=== PATIENT | female | born 1985 | race African-American/Black ===

== ENCOUNTER 2018-03-24 20:34 | Emergency (ER) | payer MEDICAID ==
[2018-03-24 20:50] VITALS: BP 156/111
--- NOTE | 2018-03-24 21:32 | EDM.PDOC ---
ED HPI GENERAL MEDICAL PROBLEM - General Chief Complaint: Abdominal Pain Stated Complaint: TIRED AND STOMACH PAIN Time Seen by Provider: 03/24/18 21:05 Source of Information: Reports: Patient, RN Notes Reviewed History Limitations: Reports: No Limitations - History of Present Illness INITIAL COMMENTS - FREE TEXT/NARRATIVE: The patient states that she has been experiencing upper abdominal pain on and off for the past week, along with oral canker sores, and feeling tired and weak. She describes the abdominal pain as a dull ache. It does not radiate. When it is present, it will be there all day, then resolve for a few hours. She has not found any modifiers. She has associated nausea, and vomited yesterday. No constipation, diarrhea, or bloody bowel movements. No urinary symptoms. No recent fever. The patient states that she has been taking Zofran 4 mg ODT twice a day, which has helped with her nausea, but has not helped with the abdominal pain itself. The patient reports that she had similar abdominal discomfort in June 2017, when she was on Cytoxan for treatment of her SLE. The patient states that she is currently not on any medications for any of her medical conditions. The patient's PCP and Social Service Worker are in [place], [place]. She lives here in [place], but does not have any providers here. Upper Abdomen Pain Score (Numeric/FACES): 7 - Related Data Allergies Allergy/AdvReac Type Severity Reaction Status Date / Time Sulfa (Sulfonamide Allergy Nausea Verified 03/24/18 20:51 Antibiotics) Home Meds: Home Meds . [No Known Home Meds] 01/31/18 [History] Past Medical History Cardiovascular History: Reports: Hypertension (untreated) Psychiatric History: Reports: Anxiety (untreated), Depression (untreated), Emotional Problems (untreated), Mood Swings (untreated) Immunologic History: Reports: SLE (currently untreated) - Past Surgical History HEENT Surgical History: Reports: Oral Surgery (wisdom teeth extraction) Respiratory Surgical History: Reports: Thoracentesis (right) Social & Family History - Tobacco Use Smoking Status *Q: Never Smoker - Caffeine Use Caffeine Use: Reports: None - Alcohol Use Alcohol Use History: No - Recreational Drug Use Recreational Drug Use: No - Living Situation & Occupation Living situation: Reports: Single, Alone 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 ED EXAM, GI/ABD - Physical Exam Exam: See Below Exam Limited By: No Limitations General Appearance: Alert, WD/WN, No Apparent Distress Eyes: Bilateral: Normal Appearance, EOMI Ears: Normal External Exam, Hearing Grossly Normal Nose: Normal Inspection Throat/Mouth: Normal Inspection, Normal Lips, Normal Voice, No Airway Compromise Head: Atraumatic, Normocephalic Neck: Normal Inspection, Full Range of Motion Respiratory/Chest: No Respiratory Distress, Lungs Clear, Normal Breath Sounds, No Accessory Muscle Use Cardiovascular: Normal Peripheral Pulses, Regular Rate, Rhythm, No Gallop, No JVD, No Murmur, No Rub GI/Abdominal Exam: Normal Bowel Sounds, Soft, Non-Tender (including to upper abdomen), No Organomegaly, No Distention, No Abnormal Bruit, No Mass (Female) Exam: Deferred Rectal (Female) Exam: Deferred Back Exam: Normal Inspection, Full Range of Motion. No: CVA Tenderness (L), CVA Tenderness (R) Extremities: Normal Inspection, Normal Range of Motion, No Pedal Edema, Normal Capillary Refill Neurological: Alert, Oriented, Normal Cognition, No Motor/Sensory Deficits Psychiatric: Normal Affect Skin Exam: Warm, Dry, Intact, Normal Color, No Rash Course - Vital Signs Last Recorded V/S: Last Vital Signs Temp 36.7 C 03/24/18 20:48 Pulse 73 03/24/18 20:48 Resp 20 03/24/18 20:48 BP 156/111 H 03/24/18 20:48 Pulse Ox 96 03/24/18 20:48 - Orders/Labs/Meds Labs: Laboratory Tests 03/24/18 03/24/18 Range/Units 21:35 21:35 WBC 3.05 L (3.98-10.04) K/mm3 RBC 4.08 (3.98-5.22) M/mm3 Hgb 12.8 (11.2-15.7) gm/L Hct 38.9 (34.1-44.9) % MCV 95.3 H (79.4-94.8) fl MCH 31.4 (25.6-32.2) pg MCHC 32.9 (32.2-35.5) g/dl RDW Std Deviation 43.9 (36.4-46.3) fL Plt Count 245 (182-369) K/mm3 MPV 10.1 (9.4-12.3) fl Neutrophils % (Manual) 42 (40-60) % Band Neutrophils % 0 (0-10) % Lymphocytes % (Manual) 47 H (20-40) % Atypical Lymphs % 0 % Monocytes % (Manual) 4 (2-10) % Eosinophils % (Manual) 6 H (0.7-5.8) % Basophils % (Manual) 1 (0.1-1.2) Platelet Estimate Adequate Plt Morphology Comment Normal RBC Morph Comment Normal Sodium 142 (136-145) mEq/L Potassium 3.7 (3.5-5.1) mEq/L Chloride 108 H (98-107) mEq/L Carbon Dioxide 26 (21-32) mEq/L Anion Gap 11.7 (5-15) BUN 12 (7-18) mg/dL Creatinine 0.7 (0.55-1.02) mg/dL Est Cr Clr Drug Dosing 108.01 mL/min Estimated GFR (MDRD) > 60 (>60) mL/min BUN/Creatinine Ratio 17.1 (14-18) Glucose 79 (74-106) mg/dL Calcium 8.2 L (8.5-10.1) mg/dL Total Bilirubin 0.3 (0.2-1.0) mg/dL AST 24 (15-37) U/L ALT 18 (14-59) U/L Alkaline Phosphatase 70 (46-116) U/L Total Protein 5.8 L (6.4-8.2) g/dl Albumin 1.8 L (3.4-5.0) g/dl Globulin 4.0 gm/dL Albumin/Globulin Ratio 0.5 L (1-2) Lipase 189 (73-393) U/L Meds: Medications Discontinued Medications Generic Name Dose Route Start Last Admin Trade Name Freq PRN Reason Stop Dose Admin Famotidine 40 mg 03/24/18 21:49 03/24/18 22:16 Pepcid PO 03/24/18 21:50 40 mg ONETIME STA Administration - Re-Assessments/Exams Free Text/Narrative Re-Assessment/Exam: 03/24/18 21:24 Because the patient's abdominal exam is benign - soft, with normoactive bowel sounds, and no tenderness, even to the upper abdomen, I do not see an indication for an emergency CT scan of the abdomen and pelvis. I explained to the patient that the risk of radiation far exceeds the potential benefit, and she appears to understand that. I am recommending, however, some bloodwork to make sure that there is no significantly elevated WBC count, that she is not severely anemic, and that there are no significant electrolyte abnormalities. The patient agreed. The patient then asked me if I could draw some tests to see if her abdominal pain is due to a lupus flare. I explained to the patient that there are no specific tests to check for a lupus flare, and she then asked me about an ADA - by which she meant an ESAU. I explained that many, although not all, patients with lupus are ESAU positive, but that the presence of ESAU is only used to help determine if the patient has lupus, not whether or not they are having a flare, because once ESAU positive, they will likely always be ESAU positive. I explained that the bloodwork that I will order - a CBC, CMP, and lipase level - will help to determine if there is an inflammatory process going on. 03/24/18 22:21 Test results discussed with the patient. Today's workup is unremarkable. She does not have an elevated WBC count to suggest an infection or other inflammatory process. Her electrolytes are unremarkable, and her lipase is well within normal limits. Based on her history, I suspect that the patient is suffering from gastritis or possibly acid reflux. The patient has received 40 mg of famotidine here in the ED, and I'm going to recommend that she take one tablet of [id number] famotidine twice a day. If that works to treat her symptoms, I will recommend that she decrease it to one tablet once a day, and if that works, that she stay on that dosage. If it stops working, she should return to one tablet twice a day. If one tablet twice a day fails to improve her symptoms, she may need to advance to something stronger, such as a PPI, but under those conditions, I would recommend that she undergo endoscopy. All of this was explained to the patient, who understands. As the patient does not have a PCP here [place], I will refer her to Dr. Clarisse Varma. Departure - Departure Time of Disposition: 22:24 Disposition: Home, Self-Care 01 Condition: Good Clinical Impression: Gastritis - Discharge Information *PRESCRIPTION DRUG MONITORING PROGRAM REVIEWED*: Not Applicable *COPY OF PRESCRIPTION DRUG MONITORING REPORT IN PATIENT LIZZY: Not Applicable Referrals: PCP,None [Primary Care Provider] - Clarisse Varma MD [Physician] - Forms: ED Department Discharge Additional Instructions: You were seen in the emergency room for 1 week of upper abdominal pain, canker sores, and feeling weak and tired. Workup in the ER included a CBC, CMP, and lipase level, all of which were unremarkable. There is no sign of an infection, there are no significant electrolyte abnormalities, and you do not have pancreatitis. Based on your history, physical examination, and ER tests, you are most likely suffering from gastritis = inflammation of your stomach. You have been started on the antacid medicine famotidine (Pepcid). We recommend that you take one tablet of [id number]-[id number] famotidine twice a day, and generic famotidine is just as good as the name-brand Pepcid. If that works to relieve your symptoms, you may decrease it to one tablet once a day, however, if your symptoms return, go back to one tablet twice a day. If one tablet of famotidine twice a day does not improve your symptoms, you may need to be on a stronger antacid, however, under the circumstances, it would be best if you underwent an EGD (scope of your stomach), to determine if there is something more severe going on. Follow-up with Dr. Clarisse Varma as a PCP, at the next available appointment. If any other problems, please do not hesitate to return to the ER.
[2018-03-24] MEDS ORDERED: Famotidine 20 MG Tab PO STA (21:49)
== END 2018-03-24 22:48 | disposition home or self-care (01) ==
LOC: JD.ED 20:34
DX: K29.70 Gastritis, unspecified, without bleeding (principal); F41.9 Anxiety disorder, unspecified; F32.9 Major depressive disorder, single episode, unspecified; Z88.2 Allergy status to sulfonamides
CPT/HCPCS: 36415; 80053; 83690; 85007; 85027; 99284; A9270; 99283

== ENCOUNTER 2018-10-02 12:34 | Emergency (ER) | payer BC, MEDICAID ==
[2018-10-02 12:58] VITALS: BP 156/111
--- NOTE | 2018-10-02 13:20 | EDM.PDOC ---
ED HPI GENERAL MEDICAL PROBLEM - General Chief Complaint: Respiratory Problem Stated Complaint: SOB Time Seen by Provider: 10/02/18 13:20 Source of Information: Reports: Patient History Limitations: Reports: No Limitations - History of Present Illness INITIAL COMMENTS - FREE TEXT/NARRATIVE: Patient is a 33-year-old female who presents to the ED with complaints of chest pressure, nonproductive cough, chills, and feeling mildly short of breath for the past few days. She carries a history of lupus with history of pleural effusion and pericardial effusion many years ago with diagnosis of lupus. She has felt fatigued with onset of symptoms. She denies any sinus congestion, runny nose, postnasal drip. She denies any recent sick exposures. Most of symptoms started last night and have progressed. In addition she's noticed some generalized swelling to her body which is not abnormal with diagnosis of lupus. She carries a history of hypertension, anxiety, and depression. She is on hydroxychoroquine sulfate and lisinopril. She has no history of blood clots to her lungs or legs. She has no pain or tenderness to the posterior aspect of her legs. She denies being . She also denies any acid reflux, abdominal pain , nausea or vomiting, dysuria, diarrhea, dark tarry stools, bloody stools, or any additional complaints. She has no history of CAD or hypercholesterolemia. No first-degree relative with heart disease. She does not smoke. - Related Data Allergies Allergy/AdvReac Type Severity Reaction Status Date / Time Sulfa (Sulfonamide Allergy Nausea Verified 10/02/18 12:57 Antibiotics) Home Meds: Home Meds Hydroxychloroquine Sulfate [Plaquenil] 200 mg PO BID 10/02/18 [History] Lisinopril 20 mg PO DAILY 10/02/18 [History] Past Medical History Cardiovascular History: Reports: Hypertension Musculoskeletal History: Reports: SLE, Other (See Below) Other Musculoskeletal History: lupus Psychiatric History: Reports: Anxiety, Depression, Emotional Problems, Mood Swings Immunologic History: Reports: SLE - Past Surgical History HEENT Surgical History: Reports: Oral Surgery Respiratory Surgical History: Reports: Thoracentesis Social & Family History - Tobacco Use Smoking Status *Q: Never Smoker - Caffeine Use Caffeine Use: Reports: None - Recreational Drug Use Recreational Drug Use: No - Living Situation & Occupation Living situation: Reports: Single, Alone 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 ED EXAM, GENERAL - Physical Exam Exam: See Below Exam Limited By: No Limitations General Appearance: Alert, WD/WN, No Apparent Distress Eye Exam: Bilateral Eye: Normal Inspection, PERRL Ears: Hearing Grossly Normal Nose: Normal Inspection Throat/Mouth: Normal Inspection, Normal Oropharynx, Normal Voice, No Airway Compromise Head: Atraumatic, Normocephalic Neck: Normal Inspection, Supple, Non-Tender, Full Range of Motion. No: Lymphadenopathy (L), Lymphadenopathy (R) Respiratory/Chest: No Respiratory Distress, Lungs Clear, Normal Breath Sounds, No Accessory Muscle Use, Chest Non-Tender Cardiovascular: Normal Peripheral Pulses, Regular Rate, Rhythm, No Murmur, Other (mild anterior chest pain along sternum increased with palpation. ). No: JVD Peripheral Pulses: 2+: Radial (L), Radial (R) GI/Abdominal: Normal Bowel Sounds, Soft, Non-Tender, No Organomegaly, No Distention Back Exam: Normal Inspection, Full Range of Motion. No: CVA Tenderness (L), CVA Tenderness (R) Extremities: Normal Inspection, Normal Range of Motion, Non-Tender, No Pedal Edema, Other (trace pedal edema to lower extremities. ) Neurological: Alert, Oriented, CN II-XII Intact, Normal Cognition, No Motor/ Sensory Deficits Psychiatric: Normal Affect, Normal Mood Skin Exam: Warm, Dry, Intact, Normal Color Course - Vital Signs Last Recorded V/S: Last Vital Signs Temp 98.6 F 10/02/18 12:55 Pulse 94 10/02/18 12:55 Resp 16 10/02/18 12:55 BP 156/111 H 10/02/18 12:55 Pulse Ox 97 10/02/18 12:55 - Orders/Labs/Meds Orders: Active Orders 24 hr Category Date Time Status EKG Documentation Completion [RC] STAT Care 10/02/18 13:59 Active Labs: Laboratory Tests 10/02/18 10/02/18 10/02/18 Range/Units 13:15 13:15 13:15 WBC 7.64 (3.98-10.04) K/mm3 RBC 3.04 L (3.98-5.22) M/mm3 Hgb 9.8 L D (11.2-15.7) gm/L Hct 29.7 L (34.1-44.9) % MCV 97.7 H (79.4-94.8) fl MCH 32.2 (25.6-32.2) pg MCHC 33.0 (32.2-35.5) g/dl RDW Std Deviation 50.2 H (36.4-46.3) fL Plt Count 172 L (182-369) K/mm3 MPV 11.0 (9.4-12.3) fl Neut % (Auto) 76.6 H (34.0-71.1) % Lymph % (Auto) 11.6 L (19.3-51.7) % [place] % (Auto) 10.2 (4.7-12.5) % Eos % (Auto) 1.2 (0.7-5.8) Baso % (Auto) 0.1 (0.1-1.2) % Neut # (Auto) 5.85 (1.56-6.13) K/mm3 Lymph # (Auto) 0.89 L (1.18-3.74) K/mm3 [place] # (Auto) 0.78 H (0.24-0.36) K/mm3 Eos # (Auto) 0.09 (0.04-0.36) K/mm3 Baso # (Auto) 0.01 (0.01-0.08) K/mm3 PT (9.7-12.0) SECONDS INR APTT (22-31) SECONDS Sodium 141 (136-145) mEq/L Potassium 5.2 H D (3.5-5.1) mEq/L Chloride 113 H (98-107) mEq/L Carbon Dioxide 24 (21-32) mEq/L Anion Gap 9.2 (5-15) BUN 31 H (7-18) mg/dL Creatinine 1.5 H (0.55-1.02) mg/dL Est Cr Clr Drug Dosing 50.12 mL/min Estimated GFR (MDRD) 49 (>60) mL/min BUN/Creatinine Ratio 20.7 H (14-18) Glucose 112 H (74-106) mg/dL Calcium 7.3 L (8.5-10.1) mg/dL Total Bilirubin 0.3 (0.2-1.0) mg/dL AST 20 (15-37) U/L ALT 16 (14-59) U/L Alkaline Phosphatase 49 (46-116) U/L Troponin I (0.00-0.056) ng/mL C-Reactive Protein 1.5 H* (<1.0) mg/dL Total Protein 4.0 L (6.4-8.2) g/dl Albumin 1.1 L (3.4-5.0) g/dl Globulin 2.9 gm/dL Albumin/Globulin Ratio 0.4 L (1-2) 10/02/18 10/02/18 Range/Units 13:15 13:15 WBC (3.98-10.04) K/mm3 RBC (3.98-5.22) M/mm3 Hgb (11.2-15.7) gm/L Hct (34.1-44.9) % MCV (79.4-94.8) fl MCH (25.6-32.2) pg MCHC (32.2-35.5) g/dl RDW Std Deviation (36.4-46.3) fL Plt Count (182-369) K/mm3 MPV (9.4-12.3) fl Neut % (Auto) (34.0-71.1) % Lymph % (Auto) (19.3-51.7) % [place] % (Auto) (4.7-12.5) % Eos % (Auto) (0.7-5.8) Baso % (Auto) (0.1-1.2) % Neut # (Auto) (1.56-6.13) K/mm3 Lymph # (Auto) (1.18-3.74) K/mm3 [place] # (Auto) (0.24-0.36) K/mm3 Eos # (Auto) (0.04-0.36) K/mm3 Baso # (Auto) (0.01-0.08) K/mm3 PT 10.0 (9.7-12.0) SECONDS INR < 0.93 APTT 26 (22-31) SECONDS Sodium (136-145) mEq/L Potassium (3.5-5.1) mEq/L Chloride (98-107) mEq/L Carbon Dioxide (21-32) mEq/L Anion Gap (5-15) BUN (7-18) mg/dL Creatinine (0.55-1.02) mg/dL Est Cr Clr Drug Dosing mL/min Estimated GFR (MDRD) (>60) mL/min BUN/Creatinine Ratio (14-18) Glucose (74-106) mg/dL Calcium (8.5-10.1) mg/dL Total Bilirubin (0.2-1.0) mg/dL AST (15-37) U/L ALT (14-59) U/L Alkaline Phosphatase (46-116) U/L Troponin I 0.022 (0.00-0.056) ng/mL C-Reactive Protein (<1.0) mg/dL Total Protein (6.4-8.2) g/dl Albumin (3.4-5.0) g/dl Globulin gm/dL Albumin/Globulin Ratio (1-2) Meds: Medications Discontinued Medications Generic Name Dose Route Start Last Admin Trade Name Freq PRN Reason Stop Dose Admin Al Hydroxide/Mg Hydroxide 30 0 ml 10/02/18 13:59 10/02/18 14:13 ml/ Lidocaine HCl 15 ml PO 10/02/18 14:00 45 ml ONETIME ONE Administration Sodium Chloride 1,000 mls @ 999 mls/hr 10/02/18 14:33 10/02/18 17:04 Normal Saline IV 10/02/18 15:33 750 mls/hr ONETIME ONE Infusion - Re-Assessments/Exams Free Text/Narrative Re-Assessment/Exam: Standing orders per nursing staff: CBC, chem 14, and chest x-ray. Chest x-ray revealed no acute findings. I have also ordered EKG, troponin, coag studies, and CRP. Labs reviewed: White blood cell count 7.64, hemoglobin 9.8 which is decreased from 12.8-Mar 2018 (No GI complaints), MCV 97.7, platelet count 172, neutrophil percent is 76.6, lymphocyte percentage 11.6, lymph #0.89, monocyte #0.78, sodium normal, potassium slightly elevated at 5.2, CO2 24, AG 9.2, creatinine 1.5, glucose 112, AST 20, ALT 16, troponin normal, and CRP 1.5. 1645 Reassessment, vital signs are stable. Patient states she is feeling much better with the IV fluids and GI cocktail. Two thirds of the IV fluids have ran him. Patient has no complaints concerning for GI bleed. Thus no digital rectal exam will be obtained. Patient did get relief with the GI cocktail thus I suspect patient has GERD contributing to discomfort to her lower chest. She will be placed on Prilosec 40 mg every a.m. half-hour prior to breakfast, Zantac 150 milligrams at at bedtime, and intermittent use of Maalox during the day. She will follow-up with her PCP as scheduled this coming week for reevaluation. Return precautions were discussed with the patient. Patient had no further questions or concerns and agreed with plan. Discharge will be delayed since remainder of IV fluids will be ran in. Departure - Departure Time of Disposition: 16:46 Disposition: Home, Self-Care 01 Condition: Good Clinical Impression: Gastritis Qualifiers: Gastritis type: unspecified gastritis Chronicity: acute Gastritis bleeding: without bleeding Qualified Code(s): K29.00 - Acute gastritis without bleeding Anemia Qualifiers: Anemia type: unspecified type Qualified Code(s): D64.9 - Anemia, unspecified - Discharge Information Instructions: Anemia, Gastritis, Adult Referrals: Carrol Collado MD [Primary Care Provider] - Forms: ED Department Discharge Additional Instructions: Suspect cause of recent complaint is gastritis in nature caused by acid reflux. Take Prilosec 40 mg half-hour prior to breakfast every day and Zantac 150 milligrams at bedtime. May utilize Maalox intermittently throughout the course of the day. Refrain from using ibuprofen or Aleve. Refrain from consuming spicy foods, caffeinated beverages, chocolate, or any other foods that may cause aggravation. Do not eat or drink within 3 hours of going to bed. Keep appointment as scheduled with PCP for this coming week. Push the fluids. Return to the ED if you develop any new or worsening symptoms as discussed. - My Orders Last 24 Hours: My Active Orders 10/02/18 13:59 EKG Documentation Completion [RC] STAT - Assessment/Plan Last 24 Hours: My Active Orders 10/02/18 13:59 EKG Documentation Completion [RC] STAT
--- NOTE | 2018-10-02 13:50 | CR ---
Chest: Portable view of the chest was obtained. Comparison: Prior chest x-ray of 01/31/18. Heart size and mediastinum are within normal limits for portable technique. Lungs are clear. Bony structures are grossly intact. Impression: 1. Nothing acute is appreciated on portable chest x-ray. Diagnostic code #1
[2018-10-02] MEDS ORDERED: Alum Hydrox/Mag Hydrox/Simeth 30 ML, Lidocaine 2% 15 ML PO ONE ×2 (13:59)
[2018-10-02] MEDS ORDERED: Sodium Chloride 0.9% 1,000 ML IV ONE (14:33)
== END 2018-10-02 17:43 | disposition home or self-care (01) ==
LOC: JD.ED 12:34
DX: K29.00 Acute gastritis without bleeding (principal); D64.9 Anemia, unspecified; I10 Essential (primary) hypertension; Z88.2 Allergy status to sulfonamides; Z79.899 Other long term (current) drug therapy
CPT/HCPCS: 36415; 71045; 80053; 84484; 85025; 85610; 85730; 86140; 93005; 96360; 96361; 99285; A9270; J7040; 93010; 99283

== ENCOUNTER 2020-05-25 01:19 | Emergency (ER) | payer MEDICAID, OTHER ==
[2020-05-25] MEDS ORDERED: HYDROmorphone 1 MG/ML Syringe IVPUSH ONE (01:53)
[2020-05-25] MEDS ORDERED: LORazepam 2 MG/ML SDV IVPUSH STA (01:53)
[2020-05-25] MEDS ORDERED: Ondansetron 4 MG/2 ML SDV IVPUSH ONE (01:53)
--- NOTE | 2020-05-25 01:54 | EDM.PDOC ---
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 Ulloa is a 35 year old woman who now presents the ED with lower abdominal cramps and vaginal bleeding following a spontaneous . She states that she was 7 weeks 0 days gestation by obstetric ultrasound on 10/11/2020, . On a routine OB follow-up last week, she was found to have an intrauterine demise. She was prescribed misoprostol (Cytotec), which she took this past 05/21/2020. She states that she started having pelvic cramps that same day, and passed the tissue. She initially had relatively mild vaginal bleeding, however, both the pelvic cramps and bleeding became significantly worse last night. She states that she is now passing about 1 pad per hour, and is also complaining of some nausea and vomiting that developed last night. She states that she had been prescribed some [place], and was taking about 1 tablet twice a day, with her last dose this past 05/23/2020. She has not taken any [id number] or home remedies since then. Here in the ED, the patient's initial BP is found to be elevated at 153/113, otherwise, she is hemodynamically stable, afebrile, saturating 100% on room air. Prior to Saturday, the patient denies having a recent fever, chills, sore throat, ear pain, nasal or sinus congestion, cough, dyspnea, chest pain, palpitations, nausea, vomiting, constipation, diarrhea, abdominal pain, urinary symptoms, recent weight gain or weight loss, recent bloody bowel movements or black bowel movements, recent joint aches, headaches, or rashes. The patient's PCP is Dr. Carrol Collado. Her TELEPHONE ENGINEER is Dr. Carlotta Vo. Her Superintendent Oil Field Drilling is Dr. Garett Ayala. Pelvic Pain Score (Numeric/FACES): 10 - Related Data Allergies Allergy/AdvReac Type Severity Reaction Status Date / Time Sulfa (Sulfonamide Allergy Nausea Verified 05/25/20 01:28 Antibiotics) Home Meds: Home Meds Hydroxychloroquine Sulfate [Plaquenil] 200 mg PO BID 10/02/18 [History] Lisinopril 20 mg PO DAILY 10/02/18 [History] Acetaminophen/HYDROcodone [[place] 325-5 MG] 1 - 2 tab PO Q6H PRN #10 tablet 05/25/20 [Rx] predniSONE [Prednisone] 5 mg PO 05/25/20 [History] Past Medical History Cardiovascular History: Reports: Hypertension Psychiatric History: Reports: Anxiety (untreated), Depression (untreated), Emotional Problems (untreated), Mood Swings (untreated) Immunologic History: Reports: SLE - Past Surgical History HEENT Surgical History: Reports: Oral Surgery (dental extractions) Respiratory Surgical History: Reports: Thoracentesis (right) Social & Family History - Tobacco Use Tobacco Use Status *Q: Never Tobacco User - Caffeine Use Caffeine Use: Reports: None - Alcohol Use Alcohol Use History: No - Recreational Drug Use Recreational Drug Use: No - Living Situation & Occupation Living situation: Reports: Single, with Significant Other (Fianc) 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 Reason Not Obtained: Patient condition ED EXAM - Physical Exam Exam: See Below Exam Limited By: Physical Impairment (Patient condition) General Appearance: Alert, WD/WN Eye Exam: Bilateral Eye: EOMI, Normal Inspection Ears: Normal External Exam, Hearing Grossly Normal Nose: Normal Inspection Throat/Mouth: Normal Inspection, Normal Lips, Normal Voice, No Airway Compromise Head: Atraumatic, Normocephalic Neck: Normal Inspection, Full Range of Motion Respiratory/Chest: No Respiratory Distress, Lungs Clear, Normal Breath Sounds, No Accessory Muscle Use Cardiovascular: Normal Peripheral Pulses, Regular Rate, Rhythm, No Edema, No Gallop, No JVD, No Murmur, No Rub GI/Abdominal Exam: Normal Bowel Sounds, Soft, No Organomegaly, No Distention, No Abnormal Bruit, No Mass, Tender (entire abdomen, but the lower abdomen more than the upper) Back Exam: Normal Inspection, Full Range of Motion, NT Extremities: Normal Inspection, Normal Range of Motion, No Pedal Edema, Normal Capillary Refill Neurological: Alert, Oriented, No Motor/Sensory Deficits Psychiatric: Anxious Skin Exam: Warm, Dry, Intact, Normal Color, No Rash Course - Vital Signs Last Recorded V/S: Last Vital Signs Temp 37.1 C 05/25/20 01:29 Pulse 75 05/25/20 03:32 Resp 16 05/25/20 03:32 BP 150/75 H 05/25/20 03:32 Pulse Ox 97 05/25/20 03:32 - Orders/Labs/Meds Orders: Active Orders 24 hr Category Date Time Status OB Transvaginal [US] Stat Exams 05/25/20 01:51 Ordered Sodium Chloride 0.9% [Normal Saline] 1,000 ml Med 05/25/20 02:00 Active IV ASDIRECTED Medication Orders Sodium Chloride (Normal Saline) 1,000 mls @ 150 mls/hr IV ASDIRECTED ARNOLD Last Admin: 05/25/20 02:03 Dose: 150 mls/hr Documented by: LENI Labs: Laboratory Tests 05/25/20 05/25/20 Range/Units 02:19 02:19 WBC 6.66 (3.98-10.04) K/mm3 RBC 2.84 L (3.98-5.22) M/mm3 Hgb 9.7 L (11.2-15.7) gm/dl Hct 29.4 L (34.1-44.9) % MCV 103.5 H D (79.4-94.8) fl MCH 34.2 H (25.6-32.2) pg MCHC 33.0 (32.2-35.5) g/dl RDW Std Deviation 46.1 (36.4-46.3) fL Plt Count 157 L (182-369) K/mm3 MPV 10.3 (9.4-12.3) fl Neutrophils % (Manual) 86 H (40-60) % Band Neutrophils % 0 (0-10) % Lymphocytes % (Manual) 8 L (20-40) % Atypical Lymphs % 0 % Monocytes % (Manual) 6 (2-10) % Eosinophils % (Manual) 0 L (0.7-5.8) % Basophils % (Manual) 0 L (0.1-1.2) Platelet Estimate Adequate Poikilocytosis 1+ slight Tear Drop Cells 1+ slight RBC Morph Comment Normal Sodium 144 (136-145) mEq/L Potassium 3.8 (3.5-5.1) mEq/L Chloride 110 H (98-107) mEq/L Carbon Dioxide 23 (21-32) mEq/L Anion Gap 14.8 (5-15) BUN 16 (7-18) mg/dL Creatinine 0.9 (0.55-1.02) mg/dL Est Cr Clr Drug Dosing TNP Estimated GFR (MDRD) > 60 (>60) mL/min BUN/Creatinine Ratio 17.8 (14-18) Glucose 109 H (74-106) mg/dL Calcium 7.8 L (8.5-10.1) mg/dL Magnesium 1.9 (1.8-2.4) mg/dl Total Bilirubin 0.1 L (0.2-1.0) mg/dL AST 24 (15-37) U/L ALT 18 (14-59) U/L Alkaline Phosphatase 58 (46-116) U/L Total Protein 5.5 L (6.4-8.2) g/dl Albumin 1.9 L (3.4-5.0) g/dl Globulin 3.6 gm/dL Albumin/Globulin Ratio 0.5 L (1-2) Meds: Medications Generic Name Dose Route Start Last Admin Trade Name Freq PRN Reason Stop Dose Admin Sodium Chloride 1,000 mls @ 150 mls/hr 05/25/20 02:00 05/25/20 02:03 Normal Saline IV 150 mls/hr ASDIRECTED ARNOLD Administration Discontinued Medications Generic Name Dose Route Start Last Admin Trade Name Freq PRN Reason Stop Dose Admin Hydromorphone HCl 1 mg 05/25/20 01:53 05/25/20 02:02 Hydromorphone 1 Mg/Ml Syringe IVPUSH 05/25/20 01:54 1 mg ONETIME ONE Administration Lorazepam 1 mg 05/25/20 01:53 05/25/20 02:03 Lorazepam 2 Mg/Ml Sdv IVPUSH 05/25/20 01:54 1 mg ONETIME STA Administration Ondansetron HCl 4 mg 05/25/20 01:53 05/25/20 02:02 Ondansetron 4 Mg/2 Ml Sdv IVPUSH 05/25/20 01:54 4 mg ONETIME ONE Administration - Re-Assessments/Exams Free Text/Narrative Re-Assessment/Exam: 05/25/20 01:54 As above, due to the patient's discomfort and her 's lack of knowledge, it is difficult to acquire a history from the patient, but as best I can piece together, the patient was about 8 weeks gestation when she was found to have an intrauterine demise on a routine OB checkup last week. She was prescribed a medication to help expel the fetus, which I believe has already occurred, but now presents the ED with severe pelvic cramps and vaginal bleeding, about 1 pad per hour. The duration is unclear, but it sounds like it began yesterday. On physical examination, the patient reports abdominal tenderness. Case discussed with Dr. Vo at 01:49. She recommended that I check some blood work and an ultrasound, then call her back. In addition to these, I have also ordered some IV Ativan, IV Dilaudid, IV Zofran, and IV fluid. 05/25/20 02:37 After the patient was given IV Dilaudid and IV lorazepam, she is now much more calm, even somnolent. I was able to acquire much more information. I updated the HPI. 05/25/20 03:27 The patient's CBC is remarkable for a H/H depressed at 9.7/29.4, and thrombocytopenia of 157,000, with the remainder of her CBC being unremarkable. Her CMP is remarkable for slight hyperglycemia of 109, and is otherwise unremarkable. Her magnesium level is within normal limits at 1.9. 05/25/20 03:41 Transvaginal ultrasound is read by [facility] as "mixed attenuation material in the endometrial cavity of the lower uterine segment and cervix, likely blood products, however cannot entirely exclude retained products of conception. This material not demonstrate [sic] increased color Doppler blood flow." 05/25/20 03:[address] Vo at 03:42. She feels that the patient is likely passed everything, however, she would like me to perform a pelvic exam. If the patient has minimal bleeding, she may safely be discharged home, however, if she is still having a significant amount of bleeding, I will call Dr. Vo back, and she will come in to evaluate the patient. 05/25/20 03:57 On pelvic examination, there was a moderate amount of dark blood in the vagina, although no active bleeding seen, however, there is a large piece of tissue within the cervix. The patient tolerated the pelvic exam well. 05/25/20 03:58 Case again discussed with Dr. Vo at 03:58. She will come to the ED to evaluate the patient. 05/25/20 04:38 Dr. Vo evaluated the patient, removed the piece of tissue from the cervix, and feels that the patient is safe to discharge home. Departure - Departure Time of Disposition: 04:38 Disposition: Home, Self-Care 01 Condition: Good Clinical Impression: Spontaneous complicated by delayed or excessive hemorrhage - Discharge Information *PRESCRIPTION DRUG MONITORING PROGRAM REVIEWED*: Not Applicable *COPY OF PRESCRIPTION DRUG MONITORING REPORT IN PATIENT LIZZY: Not Applicable Prescriptions: Acetaminophen/HYDROcodone [Omaha 325-5 MG] 1 - 2 tab PO Q6H PRN #10 tablet PRN Reason: Pain (Severe 7-10) Referrals: Carlotta Vo MD [Primary Care Provider] - Carrol Collado MD [Ordering Only Provider] - Garett Ayala DO [Ordering Only Provider] - Forms: ED Department Discharge Additional Instructions: You were seen in the emergency room after developing significant pelvic cramps and vaginal bleeding following a miscarriage on Saturday. Work-up in the ER included several blood tests and an ultrasound. The ultrasound indicated that you had some tissue in your cervix, confirmed on examination. The tissue was removed by Dr. Vo in the ER. A prescription for the opioid pain reliever Omaha has been provided to you. You may take 1 to 2 tablets of Omaha up to every 6 hours, as needed for pain. If you take Omaha, do not drive or operate heavy machinery for 12 hours afterwards. Omaha may cause constipation, so consider taking a stool softener. If any other problems, please do not hesitate to return to the ER. Sepsis Event Note (ED) - Evaluation Sepsis Screening Result: No Definite Risk - Focused Exam Vital Signs: Vital Signs Temp Pulse Resp BP Pulse Ox 05/25/20 03:32 75 16 150/75 H 97 05/25/20 01:29 37.1 C 100 16 153/113 H 100 - My Orders Last 24 Hours: My Active Orders 05/25/20 01:51 OB Transvaginal [US] Stat 05/25/20 02:00 Sodium Chloride 0.9% [Normal Saline] 1,000 ml IV ASDIRECTED - Assessment/Plan Last 24 Hours: My Active Orders 05/25/20 01:51 OB Transvaginal [US] Stat 05/25/20 02:00 Sodium Chloride 0.9% [Normal Saline] 1,000 ml IV ASDIRECTED
[2020-05-25] MEDS ORDERED: Sodium Chloride 0.9% 1,000 ML IV SCH (02:00)
[2020-05-25 04:54] VITALS: BP 136/75; PULSE 76
--- NOTE | 2020-05-25 04:54 | PCM.CONS ---
H&P History of Present Illness - General Date of Service: 05/25/20 Source of Information: Patient History Limitations: Reports: No Limitations - History of Present Illness Initial Comments - Free Text/Narative: 35 year old diagnosed with missed in clinic last week. Treated with cytotec per vagina. Began having bleeding Saturday that was minimal. Then on Saturday evening suddenly began having pain and more bleeding and presented to ER. After examination and ultrasound bleeding had lessened however on ER physician's examination she had tissue at the os. Pelvic Pain Score (Numeric/FACES): 10 - Related Data Allergies/Adverse Reactions: Allergies Allergy/AdvReac Type Severity Reaction Status Date / Time Sulfa (Sulfonamide Allergy Nausea Verified 05/25/20 01:28 Antibiotics) Home Medications: Home Meds Hydroxychloroquine Sulfate [Plaquenil] 200 mg PO BID 10/02/18 [History] Lisinopril 20 mg PO DAILY 10/02/18 [History] Acetaminophen/HYDROcodone [[place] 325-5 MG] 1 - 2 tab PO Q6H PRN #10 tablet [Rx] predniSONE [Prednisone] 5 mg PO 05/25/20 [History] Past Medical History Cardiovascular History: Reports: Hypertension Musculoskeletal History: Reports: SLE, Other (See Below) Other Musculoskeletal History: lupus Psychiatric History: Reports: Anxiety (untreated), Depression (untreated), Emotional Problems (untreated), Mood Swings (untreated) Immunologic History: Reports: SLE - Past Surgical History HEENT Surgical History: Reports: Oral Surgery (dental extractions) Respiratory Surgical History: Reports: Thoracentesis (right) Social & Family History - Tobacco Use Tobacco Use Status *Q: Never Tobacco User - Caffeine Use Caffeine Use: Reports: None - Recreational Drug Use Recreational Drug Use: No - Living Situation & Occupation Living situation: Reports: Single, with Significant Other (Fianc) 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) H&P Review of Systems - Review of Systems: Review Of Systems: See Below General: Reports: No Symptoms HEENT: Reports: No Symptoms Pulmonary: Reports: No Symptoms Cardiovascular: Reports: No Symptoms Gastrointestinal: Reports: No Symptoms Genitourinary: Reports: No Symptoms Musculoskeletal: Reports: No Symptoms Skin: Reports: No Symptoms Psychiatric: Reports: No Symptoms Neurological: Reports: No Symptoms Hematologic/Lymphatic: Reports: No Symptoms Immunologic: Reports: No Symptoms Exam - Exam Exam: See Below - Vital Signs Vital Signs: Last Vital Signs Temp 37.1 C 05/25/20 01:29 Pulse 75 05/25/20 03:32 Resp 16 05/25/20 03:32 BP 150/75 H 05/25/20 03:32 Pulse Ox 97 05/25/20 03:32 - Exam General: Alert, Oriented, 4 HEENT: PERRLA, Hearing Intact, Mucosa Moist & [place], Nares Patent, Normal Nasal Septum, Posterior Pharynx Clear, Conjunctiva Clear, EOMI, EACs Clear, TMs Clear Neck: Supple, Trachea Midline, 2 Lungs: Clear to Auscultation GI/Abdominal Exam: Normal Bowel Sounds, Soft, Non-Tender, No Organomegaly, No Distention, No Abnormal Bruit, No Mass, Pelvis Stable (Female) Exam: Normal External Exam, Other (on speculum exam minimal blood in vault. Tissue at os. Grasped with curved forceps and teased out. Minimal bleeding.) Rectal (Female) Exam: Normal Exam, Normal Rectal Tone Back Exam: Normal Inspection, Full Range of Motion, NT Extremities: Normal Inspection, Normal Range of Motion, Non-Tender, No Pedal Edema, Normal Capillary Refill Skin: Warm, Dry, Intact Neurological: Cranial Nerves Intact, Reflexes Equal Bilateral Neuro Extensive - Mental Status: Alert, Oriented x3, Normal Mood/Affect, Normal Cognition Neuro Extensive - Motor, Sensory, Reflexes: CN II-XII Intact, Normal Gait, Normal Reflexes Psychiatric: Alert, Normal Affect, Normal Mood - Patient Data Lab Results Last 24 hrs: Laboratory Results - last 24 hr 05/25/20 05/25/20 Range/Units 02:19 02:19 WBC 6.66 (3.98-10.04) K/mm3 RBC 2.84 L (3.98-5.22) M/mm3 Hgb 9.7 L (11.2-15.7) gm/dl Hct 29.4 L (34.1-44.9) % MCV 103.5 H D (79.4-94.8) fl MCH 34.2 H (25.6-32.2) pg MCHC 33.0 (32.2-35.5) g/dl RDW Std Deviation 46.1 (36.4-46.3) fL Plt Count 157 L (182-369) K/mm3 MPV 10.3 (9.4-12.3) fl Neutrophils % (Manual) 86 H (40-60) % Band Neutrophils % 0 (0-10) % Lymphocytes % (Manual) 8 L (20-40) % Atypical Lymphs % 0 % Monocytes % (Manual) 6 (2-10) % Eosinophils % (Manual) 0 L (0.7-5.8) % Basophils % (Manual) 0 L (0.1-1.2) Platelet Estimate Adequate Poikilocytosis 1+ slight Tear Drop Cells 1+ slight RBC Morph Comment Normal Sodium 144 (136-145) mEq/L Potassium 3.8 (3.5-5.1) mEq/L Chloride 110 H (98-107) mEq/L Carbon Dioxide 23 (21-32) mEq/L Anion Gap 14.8 (5-15) BUN 16 (7-18) mg/dL Creatinine 0.9 (0.55-1.02) mg/dL Est Cr Clr Drug Dosing TNP Estimated GFR (MDRD) > 60 (>60) mL/min BUN/Creatinine Ratio 17.8 (14-18) Glucose 109 H (74-106) mg/dL Calcium 7.8 L (8.5-10.1) mg/dL Magnesium 1.9 (1.8-2.4) mg/dl Total Bilirubin 0.1 L (0.2-1.0) mg/dL AST 24 (15-37) U/L ALT 18 (14-59) U/L Alkaline Phosphatase 58 (46-116) U/L Total Protein 5.5 L (6.4-8.2) g/dl Albumin 1.9 L (3.4-5.0) g/dl Globulin 3.6 gm/dL Albumin/Globulin Ratio 0.5 L (1-2) Result Diagrams: 05/25/20 02:19 05/25/20 02:19 Sepsis Event Note - Evaluation Sepsis Screening Result: No Definite Risk - Focused Exam Vital Signs: Vital Signs Temp Pulse Resp BP Pulse Ox 05/25/20 03:32 75 16 150/75 H 97 05/25/20 01:29 37.1 C 100 16 153/113 H 100 Consult PN Assessment/Plan Procedures: Procedures AIRWAY INHALATION TREATMENT (01/31/18) ASSAY OF LIPASE (03/24/18) ASSAY OF MERCURY (03/14/14) ASSAY OF TROPONIN QUANT (10/02/18) BL SMEAR W/DIFF WBC COUNT (03/24/18) BLOOD CULTURE FOR BACTERIA (01/01/14) C-REACTIVE PROTEIN (10/02/18) CHORIONIC GONADOTROPIN ASSAY (03/14/14) CHYLMD TRACH DNA AMP PROBE (03/14/14) COMPLETE CBC AUTOMATED (03/24/18) COMPLETE CBC W/AUTO DIFF WBC (10/02/18) COMPREHEN METABOLIC PANEL (10/02/18) ELECTROCARDIOGRAM TRACING (10/02/18) EMERGENCY DEPT VISIT (10/02/18) EMERGENCY DEPT VISIT (03/24/18) EMERGENCY DEPT VISIT (01/31/18) HYDRATE IV INFUSION ADD-ON (10/02/18) HYDRATION IV INFUSION INIT (10/02/18) N.GONORRHOEAE DNA AMP PROB (03/14/14) PROTHROMBIN TIME (10/02/18) ROUTINE VENIPUNCTURE (10/02/18) SMEAR WET MOUNT SALINE/INK (03/14/14) THROMBOPLASTIN TIME PARTIAL (10/02/18) TRICHOMONAS ASSAY W/OPTIC (03/14/14) URINALYSIS AUTO W/SCOPE (03/14/14) X-RAY EXAM CHEST 1 VIEW (10/02/18) X-RAY EXAM CHEST 2 VIEWS (01/31/18) Problem List Initiated/Reviewed/Updated: Yes Plan: Incomplete with pain - tissue now removed. Anemia. Encouraged slow fe. Followup 2 weeks. Sooner with increased bleeding.
--- NOTE | 2020-05-25 07:40 | US ---
First trimester obstetrical ultrasound: Multiple real-time images were obtained transvaginally. Comparison: No previous study. Findings: Endometrial lining is heterogeneous most likely representing blood. There is a heterogeneous mass noted within the endometrial cavity within the lower uterine segment measuring up to 2.4 cm either due to hematoma or products of conception which are miscarrying. No additional abnormality is seen within the uterus. Maternal ovaries appear within normal limits. Small amount of free fluid is seen within the pelvis. Impression: 1. Blood within the endometrial cavity as well as focal mass within the lower endometrial cavity either due to focal blood clot or miscarrying products of conception. 2. Small amount of free fluid within the pelvis which is simple. 3. Normal ovaries. Diagnostic code #3 I agree with preliminary report by Gale finalized on 05/25/20, 4:38 AM CDT
== END 2020-05-25 04:54 | disposition home or self-care (01) ==
LOC: JD.ED 01:19
DX: O03.6 Delayed or excessive hemorrhage following complete or unspecified spontaneous abortion (principal); I10 Essential (primary) hypertension; Z79.899 Other long term (current) drug therapy; Z88.2 Allergy status to sulfonamides
CPT/HCPCS: 36415; 76817; 80053; 83735; 85007; 85027; 96374; 96375; 99284; J1170; J2060; J2405; J7030

== ENCOUNTER 2020-05-27 08:36 | Emergency (ER) | payer OTHER ==
[2020-05-27 08:57] VITALS: PULSE 74
[2020-05-27] MEDS ORDERED: HYDROmorphone 0.5 MG/0.5 ML Syringe IVPUSH ONE ×2 (09:02→12:32)
[2020-05-27] MEDS ORDERED: LORazepam 2 MG/ML SDV IVPUSH ONE (09:03)
--- NOTE | 2020-05-27 09:06 | EDM.PDOC ---
ED HPI GENERAL MEDICAL PROBLEM - General Chief Complaint: [employer] Problem Stated Complaint: ABDOMINAL PAIN Time Seen by Provider: 05/27/20 09:01 Source of Information: Reports: Patient History Limitations: Reports: Other (Patient is crying and tearful. She appears to be in a good deal of pain with no position comfortable on the gurney.) - History of Present Illness INITIAL COMMENTS - FREE TEXT/NARRATIVE: 35-year-old female of -[place] descent presents to the ED with severe lower abdominal pain. Patient recently underwent a spontaneous miscarriage on May 25. She attended the ED where an ultrasound revealed plenty of debris within the intrauterine cavity felt to be blood clots. No gestational sac or fetus was identified. Patient had been identified the week prior in clinic by Dr. Alvarado [employer] to have a nonviable with blighted ovum. She was given misoprostol which she took on Saturday, May 21 and which did cause a good deal of cramping and bleeding. She was bleeding pretty heavily when she came into the ED May 25 claiming that she was soaking a pad per hour. Repeat ultrasound revealed debris within the intrauterine cavity and there was some tissue protruding from the cervical os which Dr. Alvarado did remove. Of note the patient is 1 para 0. She reports that she is experiencing severe lower abdominal cramping pain once again this morning with nausea but no vomiting. Bleeding has been minimal since removal of the tissue per cervical os. Last normal menstrual. Was felt to be around April 06. Patient is tearful and lying in the right lateral decubitus position moaning and groaning in significant pain in the ED. Onset: Today, Sudden Onset Date: 05/27/20 Onset Time: 05:00 Duration: Hour(s):, Constant, Other (Here lower abdominal cramping pain) Location: Reports: Abdomen ( rating into her back. Suprapubic abdominal pain rating into her lower back characteristic of menstrual cramps.) Quality: Reports: Other (Severe menstrual cramps) Severity: Severe (being. Patient) Improves with: Reports: None Worsens with: Reports: None ( states pain is 10 out of 10.) Context: Reports: Other (Tinnitus miscarriage a week ago with passage of some tissue per vagina May 25 in the ED. She was supposed to attend the clinic today to have a repeat ultrasound to make sure that there was no retained products of conception but she could not make it because of the severity of the pain and therefo). Denies: Activity, Exercise, Lifting, Sick Contact, Trauma Associated Symptoms: Reports: Loss of Appetite, Malaise, Nausea/Vomiting (Nausea without vomiting.). Denies: Chest Pain, Cough, cough w sputum, Diaphoresis, Fever/Chills, Headaches, Rash, Seizure, Shortness of Breath, Syncope Treatments TICKET SPECULATOR: Reports: Other (see below) (None.) abd' Pain Score (Numeric/FACES): 10 - Related Data Allergies Allergy/AdvReac Type Severity Reaction Status Date / Time Sulfa (Sulfonamide Allergy Nausea Verified 05/27/20 08:57 Antibiotics) Home Meds: Home Meds Hydroxychloroquine Sulfate [Plaquenil] 200 mg PO BID 10/02/18 [History] Lisinopril 20 mg PO DAILY 10/02/18 [History] Acetaminophen/HYDROcodone [Carmen 325-5 MG] 1 - 2 tab PO Q6H PRN #10 tablet 05/25/20 [Rx] predniSONE [Prednisone] 5 mg PO 05/25/20 [History] Diclofenac Sodium [Voltaren] 75 mg PO BIDMEALS #6 tab.cr 05/27/20 [Rx] Ondansetron [Zofran] 4 mg BUCCAL Q6H PRN #5 tab 05/27/20 [Rx] miSOPROStoL [Cytotec] 600 mcg PO ONETIME #3 tablet 05/27/20 [Rx] oxyCODONE HCl/Acetaminophen [Percocet 5-325 mg Tablet] 1 - 2 each PO Q4H PRN #16 tablet 05/27/20 [Rx] Past Medical History Cardiovascular History: Reports: Hypertension : 1 Para: 0 ( demise at 7 weeks gestation with blighted ovum) Musculoskeletal History: Reports: SLE, Other (See Below) Other Musculoskeletal History: lupus Psychiatric History: Reports: Anxiety, Depression, Emotional Problems, Mood Swings Immunologic History: Reports: SLE - Past Surgical History HEENT Surgical History: Reports: Oral Surgery Respiratory Surgical History: Reports: Thoracentesis Social & Family History - Tobacco Use Tobacco Use Status *Q: Current Status Unknown - Caffeine Use Caffeine Use: Reports: None - Living Situation & Occupation Living situation: Reports: Single, with Significant Other (Fianc) 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 Denies: Fever, Chills HEENT: Reports: No Symptoms Respiratory: Reports: No Symptoms Cardiovascular: Reports: No Symptoms Endocrine: Reports: No Symptoms GI/Abdominal: Reports: Abdominal Pain (See history of present illness.), Nausea. Denies: Constipation, Diarrhea, Vomiting : Reports: No Symptoms, Other (Severe lower abdominal pain characteristic of menstrual cramps. Radiating to her lower back.) Musculoskeletal: Reports: No Symptoms Skin: Reports: No Symptoms Neurological: Reports: No Symptoms Psychiatric: Reports: Anxiety, Other (Tearful) Hematologic/Lymphatic: Reports: No Symptoms Immunologic: Reports: No Symptoms ED EXAM, GI/ABD - Physical Exam Exam: See Below Exam Limited By: Other (Patient is tearful and moaning and groaning in significant amount of pain on the gurney.) General Appearance: Alert, Moderate Distress, Other (Temperature is 37.1 degrees. Heart rate was 74 and sinus respiratory 24 to 26/min hyperventilating. O2 sats 95 to 96% room air BP 172 104) Eyes: Bilateral: Normal Appearance (No scleral icterus. Mild blepharal pallor evident.) Throat/Mouth: Normal Inspection, Normal Oropharynx, Other (Tongue is mildly dry and coated.) Head: Atraumatic, Normocephalic Neck: Normal Inspection, Supple, Non-Tender, Full Range of Motion. No: Lymphadenopathy (L), Lymphadenopathy (R) Respiratory/Chest: Lungs Clear, Normal Breath Sounds, No Accessory Muscle Use, Chest Non-Tender, Respiratory Distress Cardiovascular: Normal Peripheral Pulses, Regular Rate, Rhythm, No Edema, No Gallop, No Murmur, No Rub GI/Abdominal Exam: Soft (Bowel sounds are very quiesced sent in all 4 quadrants.), Tender, Abnormal Bowel Sounds. No: Guarding, Rigid (Tender suprapubically without guarding or rebound.), Rebound Back Exam: Normal Inspection, Full Range of Motion. No: CVA Tenderness (L), CVA Tenderness (R) Extremities: Normal Inspection, Normal Range of Motion, Non-Tender, No Pedal Edema Neurological: Alert, Oriented, CN II-XII Intact, Normal Cognition Psychiatric: Anxious, Tearful Skin Exam: Warm, Dry, Intact, Normal Color, No Rash Course - Vital Signs Last Recorded V/S: Last Vital Signs Temp 36.9 C 05/27/20 13:07 Pulse 74 05/27/20 08:52 Resp 18 05/27/20 13:07 BP 124/85 05/27/20 13:07 Pulse Ox 95 05/27/20 13:07 - Orders/Labs/Meds Orders: Active Orders 24 hr Category Date Time Status PATIENT RETYPE [BBK] Routine Lab 05/27/20 10:36 Ordered Labs: Laboratory Tests 05/27/20 05/27/20 05/27/20 Range/Units 10:04 10:04 10:04 WBC 5.66 (3.98-10.04) K/mm3 RBC 2.62 L (3.98-5.22) M/mm3 Hgb 9.0 L (11.2-15.7) gm/dl Hct 26.8 L (34.1-44.9) % MCV 102.3 H (79.4-94.8) fl MCH 34.4 H (25.6-32.2) pg MCHC 33.6 (32.2-35.5) g/dl RDW Std Deviation 43.5 (36.4-46.3) fL Plt Count 149 L (182-369) K/mm3 MPV 10.6 (9.4-12.3) fl Neut % (Auto) 87.4 H (34.0-71.1) % Lymph % (Auto) 5.3 L (19.3-51.7) % Mccormick % (Auto) 6.2 (4.7-12.5) % Eos % (Auto) 0.7 (0.7-5.8) Baso % (Auto) 0.2 (0.1-1.2) % Neut # (Auto) 4.95 (1.56-6.13) K/mm3 Lymph # (Auto) 0.30 L (1.18-3.74) K/mm3 Mccormick # (Auto) 0.35 (0.24-0.36) K/mm3 Eos # (Auto) 0.04 (0.04-0.36) K/mm3 Baso # (Auto) 0.01 (0.01-0.08) K/mm3 Manual Slide Review Abnormal smear Sodium 141 (136-145) mEq/L Potassium 3.7 (3.5-5.1) mEq/L Chloride 110 H (98-107) mEq/L Carbon Dioxide 21 (21-32) mEq/L Anion Gap 13.7 (5-15) BUN 12 (7-18) mg/dL Creatinine 1.0 (0.55-1.02) mg/dL Est Cr Clr Drug Dosing 74.21 mL/min Estimated GFR (MDRD) > 60 (>60) mL/min BUN/Creatinine Ratio 12.0 L (14-18) Glucose 159 H (74-106) mg/dL Calcium 7.4 L (8.5-10.1) mg/dL Total Bilirubin 0.2 (0.2-1.0) mg/dL AST 21 (15-37) U/L ALT 14 (14-59) U/L Alkaline Phosphatase 50 (46-116) U/L C-Reactive Protein 1.0 (<1.0) mg/dL Total Protein 4.7 L (6.4-8.2) g/dl Albumin 1.4 L (3.4-5.0) g/dl Globulin 3.3 gm/dL Albumin/Globulin Ratio 0.4 L (1-2) HCG, Quant 2694.0 mIU/mL Blood Type Gel Antibody Screen 05/27/20 Range/Units 10:04 WBC (3.98-10.04) K/mm3 RBC (3.98-5.22) M/mm3 Hgb (11.2-15.7) gm/dl Hct (34.1-44.9) % MCV (79.4-94.8) fl MCH (25.6-32.2) pg MCHC (32.2-35.5) g/dl RDW Std Deviation (36.4-46.3) fL Plt Count (182-369) K/mm3 MPV (9.4-12.3) fl Neut % (Auto) (34.0-71.1) % Lymph % (Auto) (19.3-51.7) % Mccormick % (Auto) (4.7-12.5) % Eos % (Auto) (0.7-5.8) Baso % (Auto) (0.1-1.2) % Neut # (Auto) (1.56-6.13) K/mm3 Lymph # (Auto) (1.18-3.74) K/mm3 Mccormick # (Auto) (0.24-0.36) K/mm3 Eos # (Auto) (0.04-0.36) K/mm3 Baso # (Auto) (0.01-0.08) K/mm3 Manual Slide Review Sodium (136-145) mEq/L Potassium (3.5-5.1) mEq/L Chloride (98-107) mEq/L Carbon Dioxide (21-32) mEq/L Anion Gap (5-15) BUN (7-18) mg/dL Creatinine (0.55-1.02) mg/dL Est Cr Clr Drug Dosing mL/min Estimated GFR (MDRD) (>60) mL/min BUN/Creatinine Ratio (14-18) Glucose (74-106) mg/dL Calcium (8.5-10.1) mg/dL Total Bilirubin (0.2-1.0) mg/dL AST (15-37) U/L ALT (14-59) U/L Alkaline Phosphatase (46-116) U/L C-Reactive Protein (<1.0) mg/dL Total Protein (6.4-8.2) g/dl Albumin (3.4-5.0) g/dl Globulin gm/dL Albumin/Globulin Ratio (1-2) HCG, Quant mIU/mL Blood Type A POSITIVE Gel Antibody Screen Negative Meds: Medications Discontinued Medications Generic Name Dose Route Start Last Admin Trade Name Freq PRN Reason Stop Dose Admin Hydromorphone HCl 0.5 mg 05/27/20 09:02 05/27/20 09:29 Hydromorphone 0.5 Mg/0.5 Ml Syringe IVPUSH 05/27/20 09:03 0.5 mg ONETIME ONE Administration Hydromorphone HCl 0.5 mg 05/27/20 12:32 05/27/20 13:05 Hydromorphone 0.5 Mg/0.5 Ml Syringe IVPUSH 05/27/20 12:33 0.5 mg ONETIME ONE Administration Dextrose/Sodium Chloride 1,000 mls @ 500 mls/hr 05/27/20 09:15 05/27/20 09:28 Dextrose 5%-Normal Saline IV 500 mls/hr ASDIRECTED ARNOLD Administration Lorazepam 0.5 mg 05/27/20 09:03 05/27/20 09:28 Lorazepam 2 Mg/Ml Sdv IVPUSH 05/27/20 09:04 0.5 mg ONETIME ONE Administration - Radiology Interpretation Free Text/Narrative:: 35-year-old female who is 1 para 0 presents to the ED after suffering a spontaneous miscarriage 2 days ago. Patient had been identified to have a blighted ovum in the office last week. She is under the care of Dr. Alvarado [employer]. She was given misoprostol tablets which she took on Saturday, May 21 which did produce significant lower abdominal cramping pain and fairly heavy vaginal bleeding. When she arrived in the ED on May 25 Dr. Rosales attended her and identified that she was bleeding rather heavily per vagina claiming that she was soaking a pad per hour. An ultrasound revealed plenty of debris within the intrauterine cavity and some tissue in the interest cervical os. Dr. Alvarado came in and remove this tissue with ring forceps. Patient states she did okay the day after but during the night developed severe lower abdominal cramping pain once again with minimal bleeding at this time. She presents to the ED in distress crying tearful moaning and groaning in pain. It is suspect therefore that she has further products of conception to pass. Plan IV D5 normal saline at 500 mils per hour. Routine labs to be done including a type and screen. Hemoglobin was 9.7 when she presented to the ED May 25. She will have a transvaginal ultrasound to see if there is any significant debris within the intrauterine cavity that would merit a D&C. - Re-Assessments/Exams Free Text/Narrative Re-Assessment/Exam: 05/27/20 11:38 Total white count is 5.66 with 87.4% neutrophils. Hemoglobin is 9.0 with hematocrit of 26.8. MCV is elevated at 102.3. Platelet counts 149,000. The smear reveals neutrophilia lymphopenia. 3+ macrocytosis 2+ ovalocytes platelet count is reduced with normal morphology. Sodium 141 with a potassium of 3.7. Chloride is 110 with a bicarb of 21 and anion gap of 13.7. BUN is 12 with a creatinine of 1.0 GFR greater than 60. Glucose is 159 slightly elevated calcium is 7.4 liver function is normal. C-reactive protein 1.0 total protein 4.7 which is low albumin fraction is very low at 1.4. hCG quantitative is 2694.0 05/27/20 11:38 Transvaginal ultrasound has been completed. Small amount of free fluid is seen within the cul-de-sac. Right and left ovaries appear to be within normal limits. Hypoechoic material is seen within the endometrial cavity. This most likely resent represents focal area of increased blood material. No Doppler blood flow is seen within this area. No myometrial abnormality is appreciated. 05/27/20 12:15 I did speak with Dr. Vo and the patient did have an appointment scheduled for 10:00 this morning. Came here due to the intensity of the lower abdominal cramping pain. Dr. Alvarado suggest based on the ultrasound findings to try further doses of Cytotec orally or vaginally to expel any further debris from the lining of the uterus and to follow-up on Saturday in the clinic. There does not seem to be enough tissue to warrant an a D&C at this time. 05/27/20 12:33 the patient is starting to have some cramps coming back again. I am going to repeat Dilaudid 0.5 mg IV. Plan will then be to discharge her home to take Cytotec 200 mcg tablets x3 orally x1. I am going to place her on Voltaren 75 mg twice daily to help reduce the flow and cramping. Percocet 5/325 mg tabs 1 or 2 every 4-6 hours necessary for pain relief and Zofran 4 mg under the tongue every 4 hours as necessary for nausea relief. She is to make a follow-up appointment to see Dr. Alvarado on Saturday next week. This will be for a repeat ultrasound. Departure - Departure Time of Disposition: 12:36 Disposition: Home, Self-Care 01 Condition: Fair Clinical Impression: Incomplete miscarriage with blood clot, Severe menstrual cramps Abdominal pain Qualifiers: Abdominal location: lower abdomen, unspecified Qualified Code(s): R10.30 - Lower abdominal pain, unspecified - Discharge Information *PRESCRIPTION DRUG MONITORING PROGRAM REVIEWED*: Not Applicable *COPY OF PRESCRIPTION DRUG MONITORING REPORT IN PATIENT LIZZY: Not Applicable Prescriptions: miSOPROStoL [Cytotec] 600 mcg PO ONETIME #3 tablet oxyCODONE HCl/Acetaminophen [Percocet 5-325 mg Tablet] 1 - 2 each PO Q4H PRN #16 tablet PRN Reason: Pain relief Diclofenac Sodium [Voltaren] 75 mg PO BIDMEALS #6 tab.cr Ondansetron [Zofran] 4 mg BUCCAL Q6H PRN #5 tab PRN Reason: nausea or vomiting Instructions: Incomplete Miscarriage, Abdominal Pain, Adult, [id number] Referrals: Carrol Collado MD [Primary Care Provider] - Forms: ED Department Discharge Additional Instructions: Evaluation in the emergency room this morning in regards to return of severe lower abdominal pain due to severe menstrual cramps. You underwent a spontaneous miscarriage over the last few days with removal of tissue from the endometrial cavity by Dr. Alvarado while in the ED May 25. Ultrasound done today of the uterus reveals debris within the uterus which appears to be mostly blood clot but no obvious tissue. After discussing the case with Dr. Alvarado she feels you would benefit from further dose of Cytotec taking 200 mcg tablets x3 to promote further cleansing or emptying of the uterus. Use Voltaren 75 mg about 2 hours before taking the Cytotec which should help reduce some of the cramping and use it twice daily for the next 3 days. May use Percocet tabs 5/325 mg strength 1 or 2 every 4 hours as necessary for pain relief usually with a little bit of food in your stomach such as soda crackers etc. Zofran 4 mg under the tongue every 4-6 hours necessary for relief of nausea or or vomiting if needed. You are supposed to make an appointment to see Dr. Alvarado in clinic on Saturday please try and make that appointment today when you get home. Plan will be to do a repeat ultrasound transvaginally while in clinic to make sure that the lining of the uterus is empty. Sepsis Event Note (ED) - Evaluation Sepsis Screening Result: No Definite Risk - Focused Exam Vital Signs: Vital Signs Temp Pulse Resp BP Pulse Ox 05/27/20 13:07 36.9 C 18 124/85 95 05/27/20 08:52 37.1 C 74 24 H 172/104 H 95 - My Orders Last 24 Hours: My Active Orders 05/27/20 10:36 PATIENT RETYPE [BBK] Routine - Assessment/Plan Last 24 Hours: My Active Orders 05/27/20 10:36 PATIENT RETYPE [BBK] Routine
[2020-05-27] MEDS ORDERED: Dextrose 5%-0.9% NaCl 1,000 ML IV SCH (09:15)
--- NOTE | 2020-05-27 10:53 | US ---
First trimester obstetrical ultrasound: Multiple real-time images were obtained transvaginally. Small amount of free fluid is seen within the cul-de-sac. Right and left ovaries appear within normal limits. Hypoechoic material is seen within the endometrial cavity. This most likely represents focal area of increased blood material. No Doppler blood flow is seen within this area. No myometrial abnormality is appreciated. Impression: 1. Small amount of fluid within the cul-de-sac most likely physiologic. 2. Hypoechoic area within the endometrial cavity raising the possibility of blood. 3. No additional abnormality is identified. Diagnostic code #3
[2020-05-27 13:08] VITALS: BP 124/85
== END 2020-05-27 13:09 | disposition home or self-care (01) ==
LOC: JD.ED 08:36
DX: O03.4 Incomplete spontaneous abortion without complication (principal); I10 Essential (primary) hypertension; Z88.2 Allergy status to sulfonamides; Z79.899 Other long term (current) drug therapy
CPT/HCPCS: 36415; 76817; 80053; 84702; 85025; 86140; 86850; 86900; 86901; 96374; 96375; 96376; 99284; J1170; J2060; J7042

== ENCOUNTER 2020-10-26 09:52 | Emergency (ER) | payer OTHER ==
[2020-10-26 10:24] VITALS: BP 203/130; PULSE 66
[2020-10-26] MEDS ORDERED: Sodium Chloride 0.9% 10 ML Syringe FLUSH PRN (10:28)
--- NOTE | 2020-10-26 11:04 | EDM.PDOC ---
ED HPI GENERAL MEDICAL PROBLEM - General Chief Complaint: General Stated Complaint: HIGH POTASSIUM Time Seen by Provider: 10/26/20 10:21 Source of Information: Reports: Patient History Limitations: Reports: No Limitations - History of Present Illness INITIAL COMMENTS - FREE TEXT/NARRATIVE: The patient presents to the ER for elevated potassium level. She has a history of Lupus and she sees Dr Collado. Dr Collado did some labs yesterday and she got a call to come right to the ER because her potassium was 6.3. She says she has been swelling lately and had about a 20 pound weight gain. She has a history of kidney problems. She never needed dialysis for kidney issues. She has no other symptoms such as fever, chills, cough, chest pain, shortness of breath, abdominal pain, nausea or vomiting. She has noticed she is urinating less. Onset: Gradual Duration: Day(s): Severity: Moderate Improves with: Reports: None Worsens with: Reports: None Associated Symptoms: Reports: No Other Symptoms - Related Data Allergies Allergy/AdvReac Type Severity Reaction Status Date / Time Sulfa (Sulfonamide AdvReac Nausea Verified 10/26/20 10:24 Antibiotics) Home Meds: Home Meds Hydroxychloroquine Sulfate [Plaquenil] 200 mg PO BID 10/02/18 [History] Lisinopril 20 mg PO DAILY 10/02/18 [History] Acetaminophen/HYDROcodone [[place] 325-5 MG] 1 - 2 tab PO Q6H PRN #10 tablet 05/25/20 [Rx] predniSONE [Prednisone] 5 mg PO 05/25/20 [History] Diclofenac Sodium [Voltaren] 75 mg PO BIDMEALS #6 tab.cr 05/27/20 [Rx] Ondansetron [Zofran] 4 mg BUCCAL Q6H PRN #5 tab 05/27/20 [Rx] miSOPROStoL [Cytotec] 600 mcg PO ONETIME #3 tablet 05/27/20 [Rx] oxyCODONE HCl/Acetaminophen [Percocet 5-325 mg Tablet] 1 - 2 each PO Q4H PRN #16 tablet 05/27/20 [Rx] Past Medical History Cardiovascular History: Reports: Hypertension Musculoskeletal History: Reports: SLE, Other (See Below) Other Musculoskeletal History: lupus Psychiatric History: Reports: Anxiety, Depression, Emotional Problems, Mood Swings Immunologic History: Reports: SLE - Past Surgical History HEENT Surgical History: Reports: Oral Surgery Respiratory Surgical History: Reports: Thoracentesis Social & Family History - Tobacco Use Tobacco Use Status *Q: Never Tobacco User Second Hand Smoke Exposure: No - Caffeine Use Caffeine Use: Reports: None - Recreational Drug Use Recreational Drug Use: No - Living Situation & Occupation Living situation: Reports: Single, with Significant Other (Fianc) 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 Denies: Chest Pain Endocrine: Reports: No Symptoms GI/Abdominal: Reports: No Symptoms : Reports: Other (decreased urine output) Musculoskeletal: Reports: No Symptoms Skin: Reports: No Symptoms Neurological: Reports: No Symptoms ED EXAM, GENERAL - Physical Exam Exam: See Below Exam Limited By: No Limitations General Appearance: Alert, No Apparent Distress Ears: Normal External Exam Nose: Normal Inspection Head: Atraumatic, Normocephalic Neck: Normal Inspection Respiratory/Chest: No Respiratory Distress, Lungs Clear, Normal Breath Sounds Cardiovascular: Regular Rate, Rhythm, No Edema, No Murmur GI/Abdominal: Soft, Non-Tender, No Organomegaly, No Mass Back Exam: Normal Inspection Extremities: Normal Inspection Neurological: Alert, Oriented, No Motor/Sensory Deficits #1 Interpretation EKG Date: 10/26/20 Time: 11:05 Rhythm: NSR Rate (Beats/Min): 67 [place]: Normal P-Wave: Present QRS: Normal ST-T: Normal QT: Normal Course - Vital Signs Last Recorded V/S: Last Vital Signs Temp 97 F 10/26/20 10:22 Pulse 66 10/26/20 10:22 Resp 16 10/26/20 10:22 BP 203/130 H 10/26/20 10:22 Pulse Ox 97 10/26/20 19:45 - Orders/Labs/Meds Orders: Active Orders 24 hr Category Date Time Status Cardiac Monitoring [RC] . DIRECTED Care 10/26/20 10:28 Active Peripheral IV Care [RC] . DIRECTED Care 10/26/20 10:28 Active RT Aerosol Therapy [RC] ASDIRECTED Care 10/26/20 14:11 Active Sodium Chloride 0.9% [Saline Flush] Med 10/26/20 10:28 Active 10 ml FLUSH ASDIRECTED PRN Peripheral IV Insertion Adult [OM.PC] Stat Oth 10/26/20 10:28 Ordered Medication Orders Sodium Chloride (Sodium Chloride 0.9% 10 Ml Syringe) 10 ml FLUSH ASDIRECTED PRN PRN Reason: Keep Vein Open Labs: Laboratory Tests 10/26/20 10/26/20 10/26/20 Range/Units 11:59 11:59 18:49 WBC 7.32 (3.98-10.04) K/mm3 RBC 3.89 L (3.98-5.22) M/mm3 Hgb 13.2 D (11.2-15.7) gm/dl Hct 40.1 (34.1-44.9) % MCV 103.1 H (79.4-94.8) fl MCH 33.9 H (25.6-32.2) pg MCHC 32.9 (32.2-35.5) g/dl RDW Std Deviation 46.9 H (36.4-46.3) fL Plt Count 238 D (182-369) K/mm3 MPV 10.8 (9.4-12.3) fl Neut % (Auto) 84.9 H (34.0-71.1) % Lymph % (Auto) 11.2 L (19.3-51.7) % [place] % (Auto) 3.8 L (4.7-12.5) % Eos % (Auto) 0 L (0.7-5.8) Baso % (Auto) 0.0 L (0.1-1.2) % Neut # (Auto) 6.21 H (1.56-6.13) K/mm3 Lymph # (Auto) 0.82 L (1.18-3.74) K/mm3 [place] # (Auto) 0.28 (0.24-0.36) K/mm3 Eos # (Auto) 0.00 L (0.04-0.36) K/mm3 Baso # (Auto) 0.00 L (0.01-0.08) K/mm3 Sodium 140 (136-145) mEq/L Potassium 6.1 H D (3.5-5.1) mEq/L Chloride 111 H (98-107) mEq/L Carbon Dioxide 19 L (21-32) mEq/L Anion Gap 16.1 H (5-15) BUN 30 H (7-18) mg/dL Creatinine 2.2 H D (0.55-1.02) mg/dL Est Cr Clr Drug Dosing 33.73 mL/min Estimated GFR (MDRD) 31 (>60) mL/min BUN/Creatinine Ratio 13.6 L (14-18) Glucose 96 (70-99) mg/dL Calcium 7.8 L (8.5-10.1) mg/dL Magnesium 2.3 (1.8-2.4) mg/dL Total Bilirubin 0.1 L (0.2-1.0) mg/dL AST 29 (15-37) U/L ALT 18 (14-59) U/L Alkaline Phosphatase 68 (46-116) U/L Total Protein 5.1 L (6.4-8.2) g/dl Albumin 1.2 L (3.4-5.0) g/dl Globulin 3.9 gm/dL Albumin/Globulin Ratio 0.3 L (1-2) SARS-CoV-2 RNA (ALE) Negative (NEGATIVE) Meds: Medications Generic Name Dose Route Start Last Admin Trade Name Freq PRN Reason Stop Dose Admin Sodium Chloride 10 ml 10/26/20 10:28 Sodium Chloride 0.9% 10 Ml Syringe FLUSH ASDIRECTED PRN Keep Vein Open Discontinued Medications Generic Name Dose Route Start Last Admin Trade Name Freq PRN Reason Stop Dose Admin Albuterol 2.5 mg 10/26/20 14:11 10/26/20 19:42 Albuterol 0.083% 2.5 Mg/3 Ml Neb Soln NEB 10/26/20 14:12 2.5 mg ONETIME ONE Administration Albuterol Confirm 10/26/20 19:41 Albuterol 0.083% 2.5 Mg/3 Ml Neb Soln Administered 10/26/20 19:42 Dose 2.5 mg .ROUTE .STK-MED ONE Lidocaine HCl Confirm 10/26/20 11:58 Xylocaine-Mpf 1% Administered 10/26/20 11:59 Dose 4 mls @ as directed .ROUTE .STK-MED ONE Lidocaine HCl Confirm 10/26/20 19:28 Lidocaine 1% 10 Ml Mdv Administered 10/26/20 19:29 Dose 10 ml .ROUTE .STK-MED ONE Lidocaine/Epinephrine 20 ml 10/26/20 17:38 10/26/20 18:27 Lidocaine 1% With Epinephrine 1:100,000 20 Ml Mdv INJECT 10/26/20 17:39 Not Given ONETIME ONE Lidocaine/Epinephrine Confirm 10/26/20 17:38 10/26/20 18:23 Lidocaine 1% With Epinephrine 1:100,000 10 Ml Mdv Administered 10/26/20 17:39 Not Given Dose 30 ml .ROUTE .STK-MED ONE Lidocaine/Epinephrine 30 ml 10/26/20 17:50 10/26/20 17:54 Lidocaine 1% With Epinephrine 1:100,000 10 Ml Mdv INJECT 10/26/20 17:51 30 ml ONETIME ONE Administration Lorazepam 1 mg 10/26/20 14:20 10/26/20 14:48 Lorazepam 1 Mg Tab PO 10/26/20 14:21 1 mg ONETIME ONE Administration Lorazepam 1 mg 10/26/20 15:29 10/26/20 18:23 Lorazepam 1 Mg Tab PO 10/26/20 15:30 Not Given ONETIME ONE Lorazepam 2 mg 10/26/20 15:55 10/26/20 16:05 Lorazepam 2 Mg/Ml Sdv IM 10/26/20 15:56 2 mg ONETIME ONE Administration Sodium Polystyrene Sulfonate 45 gm 10/26/20 14:11 Sodium Polystyrene Sulfonate 15 Gm/60 Ml Susp 60 Ml Bot PO 10/26/20 14:12 NOW ONE - Re-Assessments/Exams Free Text/Narrative Re-Assessment/Exam: 10/26/20 11:06 I ordered an EKG, IV saline lock and labs and albuterol. 10/26/20 19:43 Her EKG shows a NSR with no acute changes. Her CBC looks good. Her K was el evated at 6.1. Her anion gap was elevated at 16.1. Her creatinine was elevated at 2.2. Her creatinine yesterday was 1.9. Her K yesterday was 6.3. My nurse tells me that they have tried a few times to get an IV and they could not. TDP DISPLAYS ANALYST was called to attempt a line. After 2 hours she could not get one. I called Dr Collado at [facility] in [place] and he wanted her to have fluids, kaexylate, bicarb, fluids and lasix. He would see her within a week and put her on kaexylate and bicarb pills. I tried a subclavian central line and was unsuccessful. I called my general surgeon in to help with the line and she tried an IJ and femoral and she could not get one. I did help her with the IJ and with US guidance it appeared we were both in but there was no flash. I then did a IO and I could not push any fluid. There was sever pain and I was able to draw off a small amount of blood and then it clotted. I could not pass anything through it then. I cannot get any access. I have exhausted everything I can do here. I called [facility] in [place] and talked with Dr Orr in the ER and he accepted the patient. He is not sure what more they can do for her here. I will transfer her down to [facility] ER. 10/26/20 20:05 Departure - Departure Time of Disposition: 20:05 Disposition: DC/Tfer to Acute Hospital 02 Condition: Fair Clinical Impression: Hyperkalemia, Renal insufficiency, Lupus - Discharge Information Referrals: Jin Collado MD [Primary Care Provider] - Forms: ED Department Discharge Sepsis Event Note (ED) - Evaluation Sepsis Screening Result: No Definite Risk - Focused Exam Vital Signs: Vital Signs Temp Pulse Resp BP Pulse Ox 10/26/20 19:45 97 10/26/20 10:22 97 F 66 16 203/130 H - My Orders Last 24 Hours: My Active Orders 10/26/20 10:28 Cardiac Monitoring [RC] . DIRECTED Peripheral IV Care [RC] . DIRECTED Sodium Chloride 0.9% [Saline Flush] 10 ml FLUSH ASDIRECTED PRN Peripheral IV Insertion Adult [OM.PC] Stat 10/26/20 14:11 RT Aerosol Therapy [RC] ASDIRECTED - Assessment/Plan Last 24 Hours: My Active Orders 10/26/20 10:28 Cardiac Monitoring [RC] . DIRECTED Peripheral IV Care [RC] . DIRECTED Sodium Chloride 0.9% [Saline Flush] 10 ml FLUSH ASDIRECTED PRN Peripheral IV Insertion Adult [OM.PC] Stat 10/26/20 14:11 RT Aerosol Therapy [RC] ASDIRECTED
[2020-10-26] MEDS ORDERED: Lidocaine 1% 4 ML ONE (11:58)
--- NOTE | 2020-10-26 13:58 | PCM.SN.2 ---
- Free Text/Narrative Note: Anesthesia Note: Start: 1136 Stop: 1340 Anesthesia requested for IV/blood draw for lab. Numerous attempts noted with blood flash obtained and inability to advance catheter. Blood sample obtained for lab studies. Local anesthetic utilized for each attempt. Patient tolerated well, but requested anti-anxiety medication towards the end. Dr. Yoder informed and notified of no current IV access. Dr. Yoder also infor med of patient requesting some anti-anxiety medication, (oral versed suggested), if central line is placed. Thank you. Bianka BRYANT Time Documentation
[2020-10-26] MEDS ORDERED: Sodium Polystyrene Sulfonate 15 GM/60 ML Susp 60 ML Bot PO ONE (14:11)
[2020-10-26] MEDS ORDERED: Albuterol 0.083% 2.5 MG/3 ML Neb Soln NEB ONE (14:11)
[2020-10-26] MEDS ORDERED: LORazepam 1 MG Tab PO ONE ×2 (14:20→15:29)
[2020-10-26] MEDS ORDERED: LORazepam 2 MG/ML SDV IM ONE (15:55)
[2020-10-26] MEDS ORDERED: Lidocaine 1% with EPINEPHrine 1:100,000 10 ML MDV ONE (17:38)
[2020-10-26] MEDS ORDERED: Lidocaine 1% with EPINEPHrine 1:100,000 20 ML MDV INJECT ONE (17:38)
[2020-10-26] MEDS ORDERED: Lidocaine 1% with EPINEPHrine 1:100,000 10 ML MDV INJECT ONE (17:50)
[2020-10-26] MEDS ORDERED: Lidocaine 1% 10 ML MDV ONE (19:28)
--- NOTE | 2020-10-26 19:28 | PCM.CONS ---
H&P History of Present Illness - General Date of Service: 10/26/20 Admit Problem/Dx: hyperkalemia Source of Information: Patient, Family, Provider History Limitations: Reports: No Limitations - History of Present Illness Initial Comments - Free Text/Narative: 35 y/o lady with history of lupus presents with findings of hyperkalemia. Multiple attempts were made to obtaine IV access, and the ED provider attempted a subclavian vein central line unsuccessfully. Consult placed for IV access. - Related Data Allergies/Adverse Reactions: Allergies Allergy/AdvReac Type Severity Reaction Status Date / Time Sulfa (Sulfonamide AdvReac Nausea Verified 10/26/20 10:24 Antibiotics) Home Medications: Home Meds Hydroxychloroquine Sulfate [Plaquenil] 200 mg PO BID 10/02/18 [History] Lisinopril 20 mg PO DAILY 10/02/18 [History] Acetaminophen/HYDROcodone [[place] 325-5 MG] 1 - 2 tab PO Q6H PRN #10 tablet 05/25/20 [Rx] predniSONE [Prednisone] 5 mg PO 05/25/20 [History] Diclofenac Sodium [Voltaren] 75 mg PO BIDMEALS #6 tab.cr 05/27/20 [Rx] Ondansetron [Zofran] 4 mg BUCCAL Q6H PRN #5 tab 05/27/20 [Rx] miSOPROStoL [Cytotec] 600 mcg PO ONETIME #3 tablet 05/27/20 [Rx] oxyCODONE HCl/Acetaminophen [Percocet 5-325 mg Tablet] 1 - 2 each PO Q4H PRN #16 tablet 05/27/20 [Rx] Past Medical History Cardiovascular History: Reports: Hypertension Musculoskeletal History: Reports: SLE, Other (See Below) Other Musculoskeletal History: lupus Psychiatric History: Reports: Anxiety, Depression, Emotional Problems, Mood Swings Immunologic History: Reports: SLE - Past Surgical History HEENT Surgical History: Reports: Oral Surgery Respiratory Surgical History: Reports: Thoracentesis Social & Family History - Family History Other Cardiac Family History: heart disease Endocrine/Metabolic: Reports: Diabetes, type II - Tobacco Use Tobacco Use Status *Q: Never Tobacco User Second Hand Smoke Exposure: No - Caffeine Use Caffeine Use: Reports: None - Recreational Drug Use Recreational Drug Use: No - Living Situation & Occupation Living situation: Reports: Single, with Significant Other (Fianc) 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) H&P Review of Systems - Review of Systems: Review Of Systems: See Below General: Reports: No Symptoms HEENT: Reports: No Symptoms Pulmonary: Reports: No Symptoms Cardiovascular: Reports: Edema Gastrointestinal: Reports: No Symptoms Genitourinary: Reports: Other (decreased urin output) Musculoskeletal: Reports: No Symptoms Skin: Reports: No Symptoms Neurological: Reports: No Symptoms Hematologic/Lymphatic: Reports: No Symptoms Exam - Exam Exam: See Below - Vital Signs Vital Signs: Last Vital Signs Temp 36.1 C 10/26/20 10:22 Pulse 66 10/26/20 10:22 Resp 16 10/26/20 10:22 BP 203/130 H 10/26/20 10:22 Pulse Ox Weight: 70.307 kg - Exam General: Alert, Oriented HEENT: Conjunctiva Clear, EOMI Neck: Supple Lungs: Normal Respiratory Effort Cardiovascular: Regular Rhythm Extremities: Normal Inspection Peripheral Pulses: 2+: Femoral (L) Skin: Warm, Dry, Intact - Patient Data Lab Results Last 24 hrs: Laboratory Results - last 24 hr 10/26/20 10/26/20 Range/Units 11:59 11:59 WBC 7.32 (3.98-10.04) K/mm3 RBC 3.89 L (3.98-5.22) M/mm3 Hgb 13.2 D (11.2-15.7) gm/dl Hct 40.1 (34.1-44.9) % MCV 103.1 H (79.4-94.8) fl MCH 33.9 H (25.6-32.2) pg MCHC 32.9 (32.2-35.5) g/dl RDW Std Deviation 46.9 H (36.4-46.3) fL Plt Count 238 D (182-369) K/mm3 MPV 10.8 (9.4-12.3) fl Neut % (Auto) 84.9 H (34.0-71.1) % Lymph % (Auto) 11.2 L (19.3-51.7) % [place] % (Auto) 3.8 L (4.7-12.5) % Eos % (Auto) 0 L (0.7-5.8) Baso % (Auto) 0.0 L (0.1-1.2) % Neut # (Auto) 6.21 H (1.56-6.13) K/mm3 Lymph # (Auto) 0.82 L (1.18-3.74) K/mm3 [place] # (Auto) 0.28 (0.24-0.36) K/mm3 Eos # (Auto) 0.00 L (0.04-0.36) K/mm3 Baso # (Auto) 0.00 L (0.01-0.08) K/mm3 Sodium 140 (136-145) mEq/L Potassium 6.1 H D (3.5-5.1) mEq/L Chloride 111 H (98-107) mEq/L Carbon Dioxide 19 L (21-32) mEq/L Anion Gap 16.1 H (5-15) BUN 30 H (7-18) mg/dL Creatinine 2.2 H D (0.55-1.02) mg/dL Est Cr Clr Drug Dosing 33.73 mL/min Estimated GFR (MDRD) 31 (>60) mL/min BUN/Creatinine Ratio 13.6 L (14-18) Glucose 96 (70-99) mg/dL Calcium 7.8 L (8.5-10.1) mg/dL Magnesium 2.3 (1.8-2.4) mg/dL Total Bilirubin 0.1 L (0.2-1.0) mg/dL AST 29 (15-37) U/L ALT 18 (14-59) U/L Alkaline Phosphatase 68 (46-116) U/L Total Protein 5.1 L (6.4-8.2) g/dl Albumin 1.2 L (3.4-5.0) g/dl Globulin 3.9 gm/dL Albumin/Globulin Ratio 0.3 L (1-2) Result Diagrams: 10/26/20 11:59 10/26/20 11:59 Sepsis Event Note - Evaluation Sepsis Screening Result: No Definite Risk - Focused Exam Vital Signs: Vital Signs Temp Pulse Resp BP 10/26/20 10:22 36.1 C 66 16 203/130 H Consult PN Assessment/Plan Procedures: Procedures AIRWAY INHALATION TREATMENT (01/31/18) ASSAY OF LIPASE (03/24/18) ASSAY OF MAGNESIUM (05/25/20) ASSAY OF MERCURY (03/14/14) ASSAY OF TROPONIN QUANT (10/02/18) BL SMEAR W/DIFF WBC COUNT (05/25/20) BLOOD CULTURE FOR BACTERIA (01/01/14) BLOOD TYPING SEROLOGIC ABO (05/27/20) BLOOD TYPING SEROLOGIC RH(D) (05/27/20) C-REACTIVE PROTEIN (05/27/20) CHORIONIC GONADOTROPIN ASSAY (03/14/14) CHORIONIC GONADOTROPIN TEST (05/27/20) CHYLMD TRACH DNA AMP PROBE (03/14/14) COMPLETE CBC AUTOMATED (05/25/20) COMPLETE CBC W/AUTO DIFF WBC (05/27/20) COMPREHEN METABOLIC PANEL (05/27/20) ELECTROCARDIOGRAM TRACING (10/02/18) EMERGENCY DEPT VISIT (05/27/20) EMERGENCY DEPT VISIT (10/02/18) EMERGENCY DEPT VISIT (03/24/18) EMERGENCY DEPT VISIT (01/31/18) HYDRATE IV INFUSION ADD-ON (10/02/18) HYDRATION IV INFUSION INIT (10/02/18) N.GONORRHOEAE DNA AMP PROB (03/14/14) PROTHROMBIN TIME (10/02/18) RBC ANTIBODY SCREEN (05/27/20) ROUTINE VENIPUNCTURE (05/27/20) SMEAR WET MOUNT SALINE/INK (03/14/14) THER/PROPH/DIAG INJ IV PUSH (05/27/20) THROMBOPLASTIN TIME PARTIAL (10/02/18) TRANSVAGINAL US OBSTETRIC (05/27/20) TRICHOMONAS ASSAY W/OPTIC (03/14/14) TX/PRO/DX INJ NEW DRUG ADDON (05/27/20) TX/PRO/DX INJ SAME DRUG RN ADMISSIONS (05/27/20) URINALYSIS AUTO W/SCOPE (03/14/14) X-RAY EXAM CHEST 1 VIEW (10/02/18) X-RAY EXAM CHEST 2 VIEWS (01/31/18) (1) Hyperkalemia SNOMED Code(s): 40639305 Code(s): E87.5 - HYPERKALEMIA Problem List Initiated/Reviewed/Updated: Yes Plan: 35 y/o lady with hyperkalemia who needs IV access - will plan for ultrasound guided IJ central catheter on the left after subcl di was attempted on the right, but may attempt at any site. Discussed risks of bleeding and hematoma, as well as possible pneumothorax. Her written consent was obtained - continued medical management per ED provider Mary Jo Adler MD General Surgery
[2020-10-26] MEDS ORDERED: Albuterol 0.083% 2.5 MG/3 ML Neb Soln ONE (19:41)
--- NOTE | 2020-10-26 19:46 | PCM.PRNOTE ---
- Free Text/Narrative Note: Date: October 26, 2020 Pre-procedure diagnosis: unable to gain peripheral IV access Post-procedure diagnosis: Same Procedure: Attempt at Ultrasound guided placement of central venous catheter Surgeon: Mary Jo Adler MD Anesthesia: 1% lidocaine with epinephrine Estimated blood loss: 3mL IVF: N/A Indication:inability to obtain IV access Description of the procedure: A time-out was completed verifying correct patient, procedure, and site. The patient was placed in supine position appropriate for central line placement based on the vein to be cannulated. The patients left neck was prepped and draped in sterile fashion. Local was used to anesthetize the surrounding skin area. The ultrasound was used to isolate the internal jugular vein. Multiple attempts to access the vein were made, and the vein was visually cannulated without appropriate blood return. We then turned our attention to the left inguinal area. The area was prepped and draped in standard sterile fashion. Multiple attempts were made to cannulate the vein utilizing landmarks, but this was not successful. The procedure was terminated. The patient tolerated the procedure well and there were no apparent complications. Mary Jo Adler MD General Surgery
[2020-10-26] MEDS ORDERED: HYDROmorphone 1 MG/ML Syringe IM ONE (20:03)
== END 2020-10-26 20:43 ==
LOC: JD.ED 09:52
DX: E87.5 Hyperkalemia (principal); N28.9 Disorder of kidney and ureter, unspecified; L93.0 Discoid lupus erythematosus; I10 Essential (primary) hypertension; Z88.2 Allergy status to sulfonamides; Z20.822 Contact with and (suspected) exposure to COVID-19
CPT/HCPCS: 36415; 80053; 83735; 85025; 93005; 93010; 94640; 99285; 99285-25; A9270-GY; J1170; J2060; U0002

== ENCOUNTER 2020-11-20 18:32 | Emergency (ER) | payer OTHER ==
--- NOTE | 2020-11-20 21:04 | EDM.PDOC ---
<Alce Yoder - Last Filed: 11/21/20 10:36> ED HPI GENERAL MEDICAL PROBLEM - General Chief Complaint: Cardiovascular Problem Stated Complaint: SOB Time Seen by Provider: 11/20/20 20:00 - Related Data Allergies Allergy/AdvReac Type Severity Reaction Status Date / Time Sulfa (Sulfonamide AdvReac Nausea Verified 11/21/20 16:07 CDT Antibiotics) Home Meds: Home Meds predniSONE [Prednisone] 40 mg PO DAILY 05/25/20 [History] oxyCODONE HCl/Acetaminophen [Percocet 5-325 mg Tablet] 1 - 2 each PO Q4H PRN #16 tablet 05/27/20 [Rx] Bumetanide [Bumex] 1 mg PO DAILY 11/20/20 [History] Famotidine 20 mg PO BEDTIME 11/20/20 [History] Hydroxychloroquine [Plaquenil] 400 mg PO DAILY 11/20/20 [History] Labetalol [Normodyne] 300 mg PO TID 11/20/20 [History] amLODIPine [Norvasc] 10 mg PO DAILY 11/20/20 [History] azaTHIOprine [Azathioprine] 150 mg PO DAILY 11/20/20 [History] Calcium/Magnesium/Vitamin D3 [Jose A-Mag Complex 300-150 mg Tab] 1 tab PO DAILY 11/21/20 [History] Cholecalciferol (Vitd3)/Vit K2 [D3 + K2 Dots 1,000 Unit] 1 tab PO DAILY 11/21/20 [History] Ondansetron [Zofran ODT] 1 tab PO Q4HR PRN 11/21/20 [History] Pantoprazole [ProTONIX] 1 tab PO DAILY 11/21/20 [History] Course - Re-Assessments/Exams Free Text/Narrative Re-Assessment/Exam: 11/21/20 10:[address] Jacobson. Her repeat troponin has improved to 0.65 and her Hgb has improved to 8.6. She needs to be admitted. We have no beds here and there are no beds in the state. I was informed that [facility] may have a bed. I called there and talked with Dr Cantu and he accepted the patient. She will be going by ambulance. Departure - Departure Time of Disposition: 10:40 Disposition: DC/Tfer to Acute Hospital 02 Reason for Transfer *Q: Other Condition: Fair Clinical Impression: COVID-19, Lupus, Elevated troponin, Renal insufficiency Anemia Qualifiers: Anemia type: unspecified type Qualified Code(s): D64.9 - Anemia, unspecified Referrals: Carrol Collado MD [Primary Care Provider] - Forms: ED Department Discharge <Robby Jacobson - Last Filed: 11/21/20 23:52> ED HPI GENERAL MEDICAL PROBLEM - General Source of Information: Reports: Patient, Old Records History Limitations: Reports: No Limitations - History of Present Illness INITIAL COMMENTS - FREE TEXT/NARRATIVE: Patient is a 35-year-old female with past medical history of lupus presenting with a chief complaint of not feeling well. She reports 2 weeks of symptoms. Symptoms include palpitations, left-sided chest pain, nausea without vomiting, fatigue/lethargy. His symptoms do not seem to be related to exertion at all. She has also noted increased swelling in her legs and feels more swollen overall. She denies having any associated fevers, vomiting, diarrhea, abdominal pain, sore throat, cough. Patient reports the symptoms started shortly after being discharged from [facility]. She was admitted in October for hyperkalemia and worsening kidney disease. There were discussions about dialysis. However, she is not currently being dialyzed. She has not seen medical attention prior to this presentation in the ER. 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: Musculoskeletal History: Reports: SLE, Other (See Below) Other Musculoskeletal History: lupus Psychiatric History: Reports: Anxiety, Depression, Emotional Problems, Mood Swings Immunologic History: Reports: SLE - Past Surgical History HEENT Surgical History: Reports: Oral Surgery Respiratory Surgical History: Reports: Thoracentesis Social & Family History - Family History Other Cardiac Family History: heart disease Endocrine/Metabolic: Reports: Diabetes, type II - Tobacco Use Tobacco Use Status *Q: Never Tobacco User Second Hand Smoke Exposure: No - Caffeine Use Caffeine Use: Reports: None - Recreational Drug Use Recreational Drug Use: Yes Recreational Drug Type: Reports: Marijuana/Hashish - Living Situation & Occupation Living situation: Reports: Single, with Significant Other (Fianc) Occupation: Employed ([employer]) ED ROS GENERAL - Review of Systems Review Of Systems: See Below Free Text/Narrative/Comment: In addition to that documented in the HPI above, the additional ROS was obtained: Constitutional: Per HPI Eyes: Denies vision changes ENMT: Denies sore throat CV: Per HPI Resp: Per HPI GI: Denies vomiting or diarrhea : Denies painful urination MSK: Denies recent trauma Skin: Denies new rashes Neuro: Denies new numbness or tingling or weakness Endocrine: Denies unexpected weight loss Heme: Denies bleeding disorders ED EXAM, GENERAL - Physical Exam Exam: See Below Free Text/Narrative:: I have reviewed the triage vital signs Const: Well nourished, well developed, appears stated age Eyes: Pupils Equal and reactive to light bilaterally, no conjunctival injection HENT: No signs of trauma or swelling, Neck supple without meningismus CV: Regular Rate Rhythm, Warm, well-perfused extremities RESP: Unlabored respiratory effort GI: soft, non-tender, non-distended, no masses MSK: No gross deformities appreciated Skin: Warm, dry. No rashes Extremities: Bilateral lower extremity edema noted. Neuro: Alert, motor runner II-XII grossly intact. Sensation and motor function of extremities grossly intact. Psych: Appropriate mood and affect. #1 Interpretation EKG Date: 11/20/20 Time: 20:45 Rhythm: NSR Rate (Beats/Min): 79 [place]: Normal P-Wave: Present QRS: Normal ST-T: Other (inverted T-wave V2-V3) QT: Normal Comparison: No Change Course - Vital Signs Last Recorded V/S: Last Vital Signs Temp 36.7 C 11/20/20 19:33 Pulse 80 11/21/20 11:07 Resp 18 11/21/20 11:07 BP 144/75 H 11/21/20 11:07 Pulse Ox 99 11/21/20 11:07 - Orders/Labs/Meds Labs: Laboratory Tests 11/20/20 11/20/20 11/20/20 Range/Units 20:40 20:40 20:40 WBC 13.30 H (3.98-10.04) K/mm3 RBC 2.22 L (3.98-5.22) M/mm3 Hgb 7.6 L D (11.2-15.7) gm/dl Hct 23.7 L (34.1-44.9) % MCV 106.8 H D (79.4-94.8) fl MCH 34.2 H (25.6-32.2) pg MCHC 32.1 L (32.2-35.5) g/dl RDW Std Deviation 54.2 H (36.4-46.3) fL Plt Count 190 (182-369) K/mm3 MPV 11.5 (9.4-12.3) fl Neut % (Auto) 93.0 H (34.0-71.1) % Lymph % (Auto) 2.4 L (19.3-51.7) % Cassia % (Auto) 3.4 L (4.7-12.5) % Eos % (Auto) 0 L (0.7-5.8) Baso % (Auto) 0.1 (0.1-1.2) % Neut # (Auto) 12.38 H (1.56-6.13) K/mm3 Lymph # (Auto) 0.32 L (1.18-3.74) K/mm3 [place] # (Auto) 0.45 H (0.24-0.36) K/mm3 Eos # (Auto) 0.00 L (0.04-0.36) K/mm3 Baso # (Auto) 0.01 (0.01-0.08) K/mm3 Manual Slide Review Abnormal smear PT 9.4 L (9.7-12.0) SECONDS INR < 0.93 D-Dimer, Quantitative 1.47 H (0.19-0.50) mg/L VBG pH (7.30-7.40) VBG pCO2 (41-51) mmHg VBG pO2 (40-80) mmHG VBG HCO3 (22-26) meq/L VBG O2 Saturation VBG Base Excess (-4.0-2.0) Sodium 136 (136-145) mEq/L Potassium 5.0 (3.5-5.1) mEq/L Chloride 103 (98-107) mEq/L Carbon Dioxide 26 (21-32) mEq/L Anion Gap 12.0 (5-15) BUN 38 H (7-18) mg/dL Creatinine 1.9 H (0.55-1.02) mg/dL Est Cr Clr Drug Dosing 39.06 mL/min Estimated GFR (MDRD) 37 (>60) mL/min BUN/Creatinine Ratio 20.0 H (14-18) Glucose 145 H (70-99) mg/dL Calcium 8.0 L (8.5-10.1) mg/dL Total Bilirubin 0.4 (0.2-1.0) mg/dL AST 19 (15-37) U/L ALT 27 (14-59) U/L Alkaline Phosphatase 63 (46-116) U/L Troponin I 0.083 H* (0.00-0.056) ng/mL Total Protein 4.8 L (6.4-8.2) g/dl Albumin 1.5 L (3.4-5.0) g/dl Globulin 3.3 gm/dL Albumin/Globulin Ratio 0.5 L (1-2) Lipase (73-393) U/L SARS-CoV-2 RNA (ALE) (NEGATIVE) 11/20/20 11/20/20 11/21/20 Range/Units 20:50 22:30 00:57 WBC 11.73 H (3.98-10.04) K/mm3 RBC 2.48 L (3.98-5.22) M/mm3 Hgb 8.6 L (11.2-15.7) gm/dl Hct 26.2 L (34.1-44.9) % MCV 105.6 H (79.4-94.8) fl MCH 34.7 H (25.6-32.2) pg MCHC 32.8 (32.2-35.5) g/dl RDW Std Deviation 53.7 H (36.4-46.3) fL Plt Count 183 (182-369) K/mm3 MPV 10.9 (9.4-12.3) fl Neut % (Auto) 95.7 H (34.0-71.1) % Lymph % (Auto) 2.1 L (19.3-51.7) % Cassia % (Auto) 1.7 L (4.7-12.5) % Eos % (Auto) 0 L (0.7-5.8) Baso % (Auto) 0.0 L (0.1-1.2) % Neut # (Auto) 11.22 H (1.56-6.13) K/mm3 Lymph # (Auto) 0.25 L (1.18-3.74) K/mm3 Cassia # (Auto) 0.20 L (0.24-0.36) K/mm3 Eos # (Auto) 0.00 L (0.04-0.36) K/mm3 Baso # (Auto) 0.00 L (0.01-0.08) K/mm3 Manual Slide Review Abnormal smear PT (9.7-12.0) SECONDS INR D-Dimer, Quantitative (0.19-0.50) mg/L VBG pH 7.45 H (7.30-7.40) VBG pCO2 33.3 L (41-51) mmHg VBG pO2 70.0 (40-80) mmHG VBG HCO3 23.0 (22-26) meq/L VBG O2 Saturation 95.3 VBG Base Excess -0.2 (-4.0-2.0) Sodium (136-145) mEq/L Potassium (3.5-5.1) mEq/L Chloride (98-107) mEq/L Carbon Dioxide (21-32) mEq/L Anion Gap (5-15) BUN (7-18) mg/dL Creatinine (0.55-1.02) mg/dL Est Cr Clr Drug Dosing mL/min Estimated GFR (MDRD) (>60) mL/min BUN/Creatinine Ratio (14-18) Glucose (70-99) mg/dL Calcium (8.5-10.1) mg/dL Total Bilirubin (0.2-1.0) mg/dL AST (15-37) U/L ALT (14-59) U/L Alkaline Phosphatase (46-116) U/L Troponin I (0.00-0.056) ng/mL Total Protein (6.4-8.2) g/dl Albumin (3.4-5.0) g/dl Globulin gm/dL Albumin/Globulin Ratio (1-2) Lipase (73-393) U/L SARS-CoV-2 RNA (ALE) Positive H (NEGATIVE) 11/21/20 11/21/20 Range/Units 00:57 00:57 WBC (3.98-10.04) K/mm3 RBC (3.98-5.22) M/mm3 Hgb (11.2-15.7) gm/dl Hct (34.1-44.9) % MCV (79.4-94.8) fl MCH (25.6-32.2) pg MCHC (32.2-35.5) g/dl RDW Std Deviation (36.4-46.3) fL Plt Count (182-369) K/mm3 MPV (9.4-12.3) fl Neut % (Auto) (34.0-71.1) % Lymph % (Auto) (19.3-51.7) % Cassia % (Auto) (4.7-12.5) % Eos % (Auto) (0.7-5.8) Baso % (Auto) (0.1-1.2) % Neut # (Auto) (1.56-6.13) K/mm3 Lymph # (Auto) (1.18-3.74) K/mm3 [place] # (Auto) (0.24-0.36) K/mm3 Eos # (Auto) (0.04-0.36) K/mm3 Baso # (Auto) (0.01-0.08) K/mm3 Manual Slide Review PT (9.7-12.0) SECONDS INR D-Dimer, Quantitative (0.19-0.50) mg/L VBG pH (7.30-7.40) VBG pCO2 (41-51) mmHg VBG pO2 (40-80) mmHG VBG HCO3 (22-26) meq/L VBG O2 Saturation VBG Base Excess (-4.0-2.0) Sodium (136-145) mEq/L Potassium (3.5-5.1) mEq/L Chloride (98-107) mEq/L Carbon Dioxide (21-32) mEq/L Anion Gap (5-15) BUN (7-18) mg/dL Creatinine (0.55-1.02) mg/dL Est Cr Clr Drug Dosing mL/min Estimated GFR (MDRD) (>60) mL/min BUN/Creatinine Ratio (14-18) Glucose (70-99) mg/dL Calcium (8.5-10.1) mg/dL Total Bilirubin (0.2-1.0) mg/dL AST (15-37) U/L ALT (14-59) U/L Alkaline Phosphatase (46-116) U/L Troponin I 0.065 H* (0.00-0.056) ng/mL Total Protein (6.4-8.2) g/dl Albumin (3.4-5.0) g/dl Globulin gm/dL Albumin/Globulin Ratio (1-2) Lipase 187 (73-393) U/L SARS-CoV-2 RNA (ALE) (NEGATIVE) Meds: Medications Discontinued Medications Generic Name Dose Route Start Last Admin Trade Name Chichi PRN Reason Stop Dose Admin Aspirin 324 mg 11/21/20 06:49 Aspirin 81 Mg Tab.Chew PO 11/21/20 06:50 ONETIME ONE Sodium Chloride 100 mls @ 60 mls/min 11/20/20 21:45 11/20/20 22:01 Normal Saline IV 60 mls/min ASDIRECTED ARNOLD Administration Iopamidol 100 ml 11/20/20 21:37 11/20/20 22:01 Iopamidol 755 Mg/Ml 100 Ml Bottle IVPUSH 11/20/20 21:38 100 ml ONETIME ONE Administration Sodium Chloride 10 ml 11/20/20 21:37 11/20/20 22:01 Sodium Chloride 0.9% 10 Ml Sdv FLUSH 11/20/20 21:38 10 ml ONETIME ONE Administration - Assessment/Plan Assessment:: Patient is 35-year-old female presented to the emergency room with fatigue, weakness, chest pain, fluid overload x2 weeks. Patient is in no respiratory distress and saturating at 98% on room air. Broad differential diagnosis considered for this patient include ACS, PE, COVID-19, pulmonary edema, electrolyte aberrancy, severe anemia. Laboratory studies and EKG are ordered. Laboratory studies significant for anemia with a hemoglobin of 7.6. Documented in chart from October his hemoglobin of 13.6 which is suggest significant abnormality here. However, patient has MyChart access which is CBC done in early November with a hemoglobin of 9.6. A second hemoglobin was obtained 4 hours after the first 1 here in the emergency room which demonstrates improvement to 8.6. Otherwise, her labs showed elevated D-dimer and elevated troponin. Following the elevated D-dimer, CT angiogram was ordered to rule out pulmonary embolism. This is negative for PE but did show some evidence of bilateral pleural effusions. Serial troponin trended downward. Her EKG showed no significant change from prior. Ultimately, I did recommend guaiac testing in the emergency room as well as admission to the hospital. Risks and benefits were discussed regarding guaiac testing as patient has never had endoscopy before. She ultimately refused, but was comfortable with admission to the hospital. At this point in time, no hospital beds available including at this facility, [facility]. Patient remained hemodynamically stable in the emergency room and we are still pending accepting facility for this patient given her elevated troponin, fluid overload which may be challenging as well because she did test positive for COVID-19.
[2020-11-20] MEDS ORDERED: Sodium Chloride 0.9% 10 ML SDV FLUSH ONE (21:37)
[2020-11-20] MEDS ORDERED: Iopamidol 755 Mg/ML 100 ML Bottle IVPUSH ONE (21:37)
[2020-11-20] MEDS ORDERED: Sodium Chloride 0.9% 100 ML IV SCH (21:45)
[2020-11-21] MEDS ORDERED: Aspirin 81 MG Tab.Chew PO ONE (06:49)
--- NOTE | 2020-11-21 07:38 | CR ---
Chest: Portable view of the chest was obtained. Comparison: Prior chest x-ray of 10/02/18. Technique is somewhat dark which causes slight obscuration of the lungs. Small bilateral pleural effusions are noted. Lungs otherwise are clear. Heart size and mediastinum are normal. Bony structures are unremarkable. Impression: 1. Small bilateral pleural effusions. 2. No definite acute parenchymal change is otherwise seen. Diagnostic code #3
--- NOTE | 2020-11-21 07:38 | CT ---
CT chest Technique: Multiple axial sections were obtained from above the lung apices inferiorly through the lung bases. Intravenous contrast was utilized. Study has been performed as a pulmonary angiogram protocol. Comparison: No prior chest CT is available, prior chest x-ray of 10/02/18 and chest x-ray performed on the same day (9:01 PM). Findings: Pulmonary arteries are well opacified. No filling defects are seen to indicate pulmonary embolism. Scattered lymph nodes are seen within the mediastinum. No axillary adenopathy is seen. No pericardial thickening is seen. Lung window settings were reviewed. Small bilateral pleural effusions are noted. Mild atelectasis is seen adjacent to both pleural effusions within both lung bases. Lungs otherwise are clear. Fluid is seen which extends into both breasts, worse on the right side. Ascites is seen within the visualized upper abdomen. Bone window settings were reviewed which show no acute osseous abnormality. Impression: 1. Small bilateral pleural effusions. Ascites is seen within the visualized upper abdomen. 2. Mild soft tissue edema is seen which extends into both breasts, worse on the right side. Please exclude any symptoms of mastitis. 3. No findings of pulmonary embolism. 4. Parenchymal density adjacent to both pleural effusions most likely representing compressive atelectasis. Diagnostic code #3 I agree with preliminary report from [facility], finalized on 11/21/20, 12:24 AM CDT, code 1
[2020-11-21 11:08] VITALS: BP 144/75; PULSE 80
== END 2020-11-21 12:00 ==
LOC: JD.ED 18:32
DX: U07.1 COVID-19 (principal); R79.89 Other specified abnormal findings of blood chemistry; L93.0 Discoid lupus erythematosus; D64.9 Anemia, unspecified; N28.9 Disorder of kidney and ureter, unspecified; I10 Essential (primary) hypertension; Z88.2 Allergy status to sulfonamides; Z79.899 Other long term (current) drug therapy
CPT/HCPCS: 36415; 71045; 71275; 80053; 82803; 83690; 84484; 85025; 85379; 85610; 87635; 93005; 99285; Q9967; U0002

== ENCOUNTER 2020-11-28 20:47 | Emergency (ER) | payer OTHER ==
[2020-11-28 21:56] VITALS: BP 187/133; PULSE 114
--- NOTE | 2020-11-28 23:55 | EDM.PDOC ---
ED HPI GENERAL MEDICAL PROBLEM - General Chief Complaint: Cardiovascular Problem Stated Complaint: HIGH BP/LUPUS Time Seen by Provider: 11/28/20 23:45 Source of Information: Reports: Patient History Limitations: Reports: No Limitations - History of Present Illness INITIAL COMMENTS - FREE TEXT/NARRATIVE: Patient is a 35-year-old female presenting to the emergency room with a com plaint of high blood pressure. Patient is a past medical history of lupus, hypertension and chronic kidney disease. Patient is concerned as she has been dealing with elevated blood pressure for some time now. She had a recent admission to the hospital last week and states her blood pressure was elevated in the 150s to 160s during that period of time. She states she was with her primary care doctor today who told her that she needed to come to the emergency room should her blood pressure had a systolic greater than 140. Patient states at home her blood pressure was in the 160s. This made her nervous and concerned and she therefore came into the emergency room. She does also report some occasional palpitations. This is not a new symptom today as she reported this on her last ER visit. Otherwise, denies any chest pain, difficulty breathing, strokelike symptoms. Patient reports compliance with her amlodipine 10 mg/day. Bilateral Shoulder Pain Score (Numeric/FACES): 5 - Related Data Allergies Allergy/AdvReac Type Severity Reaction Status Date / Time Sulfa (Sulfonamide AdvReac Severe Nausea Verified 11/28/20 21:44 Antibiotics) Home Meds: Home Meds predniSONE [Prednisone] 30 mg PO DAILY 05/25/20 [History] oxyCODONE HCl/Acetaminophen [Percocet 5-325 mg Tablet] 1 - 2 each PO Q4H PRN #16 tablet 05/27/20 [Rx] Bumetanide [Bumex] 2 mg PO DAILY 11/20/20 [History] Famotidine 20 mg PO BEDTIME 11/20/20 [History] Hydroxychloroquine [Plaquenil] 200 mg PO BID 11/20/20 [History] amLODIPine [Norvasc] 10 mg PO DAILY 11/20/20 [History] Calcium/Magnesium/Vitamin D3 [Jose A-Mag Complex 300-150 mg Tab] 1 tab PO DAILY 11/21/20 [History] Cholecalciferol (Vitd3)/Vit K2 [D3 + K2 Dots 1,000 Unit] 1 tab PO DAILY 11/21/20 [History] Ondansetron [Zofran ODT] 4 mg PO Q4HR PRN 11/21/20 [History] Pantoprazole [ProTONIX] 40 mg PO DAILY 11/21/20 [History] Cyanocobalamin (Vitamin B12) [Vitamin B12] 1,000 mcg PO DAILY #14 tab 11/26/20 [Rx] Folic Acid 0.8 mg PO DAILY #14 capsule 11/26/20 [Rx] Past Medical History Cardiovascular History: Reports: Hypertension 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: Musculoskeletal History: Reports: SLE, Other (See Below) Other Musculoskeletal History: lupus Psychiatric History: Reports: Anxiety, Depression, Emotional Problems, Mood Swings Immunologic History: Reports: SLE - Infectious Disease History Infectious Disease History: Reports: Novel Coronavirus - Past Surgical History HEENT Surgical History: Reports: Oral Surgery Respiratory Surgical History: Reports: Thoracentesis Social & Family History - Family History Other Cardiac Family History: heart disease Endocrine/Metabolic: Reports: Diabetes, type II - Tobacco Use Tobacco Use Status *Q: Never Tobacco User - Caffeine Use Caffeine Use: Reports: Tea Other Caffeine Use: herbal - Recreational Drug Use Recreational Drug Use: No Other Recreational Drug Type: marijuana card - Living Situation & Occupation Living situation: Reports: Single, with Significant Other (Fianc) Occupation: Employed ([employer]) ED ROS GENERAL - Review of Systems Review Of Systems: See Below Free Text/Narrative/Comment: In addition to that documented in the HPI above, the additional ROS was obtained: Constitutional: Denies fevers or chills Eyes: Denies vision changes ENMT: Denies sore throat CV: Denies chest pain Resp: Denies SOB GI: Denies vomiting or diarrhea : Denies painful urination MSK: Denies recent trauma Skin: Denies new rashes Neuro: Denies new numbness or tingling or weakness Endocrine: Denies unexpected weight loss Heme: Denies bleeding disorders ED EXAM, GENERAL - Physical Exam Exam: See Below Free Text/Narrative:: I have reviewed the triage vital signs Const: Well nourished, well developed, appears stated age Eyes: Pupils Equal and reactive to light bilaterally, no conjunctival injection HENT: No signs of trauma or swelling, Neck supple without meningismus CV: Regular Rate Rhythm, Warm, well-perfused extremities RESP: Unlabored respiratory effort GI: soft, non-tender, non-distended, no masses MSK: No gross deformities appreciated Skin: Warm, dry. No rashes Neuro: Alert, president & founder II-XII grossly intact. Sensation and motor function of extremities grossly intact. Psych: Appropriate mood and affect. #1 Interpretation EKG Date: 11/29/20 Time: 00:17 Rhythm: NSR Rate (Beats/Min): 70 [place]: Normal P-Wave: Present QRS: Normal ST-T: Normal QT: Normal Comparison: No Change EKG Interpretation Comments: Normal EKG Course - Vital Signs Last Recorded V/S: Last Vital Signs Temp 37.0 C 11/28/20 21:53 Pulse 114 H 11/28/20 21:53 Resp BP 187/133 H 11/28/20 21:53 Pulse Ox 98 11/28/20 21:53 - Orders/Labs/Meds Labs: Laboratory Tests 11/29/20 Range/Units 00:13 Sodium 143 (136-145) mEq/L Potassium 4.3 (3.5-5.1) mEq/L Chloride 110 H (98-107) mEq/L Carbon Dioxide 27 (21-32) mEq/L Anion Gap 10.3 (5-15) BUN 29 H (7-18) mg/dL Creatinine 1.3 H (0.55-1.02) mg/dL Est Cr Clr Drug Dosing 57.08 mL/min Estimated GFR (MDRD) 57 (>60) mL/min BUN/Creatinine Ratio 22.3 H (14-18) Glucose 122 H (70-99) mg/dL Calcium 7.5 L (8.5-10.1) mg/dL Total Bilirubin 0.1 L (0.2-1.0) mg/dL AST 37 (15-37) U/L ALT 87 H (14-59) U/L Alkaline Phosphatase 76 (46-116) U/L Total Protein 4.0 L (6.4-8.2) g/dl Albumin 1.5 L (3.4-5.0) g/dl Globulin 2.5 gm/dL Albumin/Globulin Ratio 0.6 L (1-2) Departure - Departure Time of Disposition: 01:09 Disposition: Home, Self-Care 01 Clinical Impression: Elevated blood pressure reading Instructions: How to Take Your Blood Pressure, [id number], Hypertension, Adult, [id number], Managing Your Hypertension, Hypertension, Adult Referrals: Caitlin Morris NP [Primary Care Provider] - Forms: ED Department Discharge Sepsis Event Note (ED) - Focused Exam Vital Signs: Vital Signs Temp Pulse BP Pulse Ox 11/28/20 21:53 37.0 C 114 H 187/133 H 98 - Assessment/Plan Assessment:: Patient is a 35-year-old female presenting with palpitations and elevated blood pressure. Patient's blood pressure significantly elevated but otherwise, patient had a normal exam. She did not have any associated complaints that was concerning for endorgan damage. I did consider acute kidney failure, stroke, acute coronary syndrome, severe electrolyte aberrancy. Patient is here with mother who is extremely distraught regarding patient's blood pressure. I spent extensive time with patient discussing her elevated blood pressure and possible treatment modalities. Since patient is currently asymptomatic she can follow-up as an outpatient. She agrees that she will follow up with her primary care physician later this morning to discuss new medications to start for her hypertension. Questions were addressed and answered. Patient agrees with plan of care.
== END 2020-11-29 01:18 | disposition home or self-care (01) ==
LOC: JD.ED 20:47
DX: I12.9 Hypertensive chronic kidney disease with stage 1 through stage 4 chronic kidney disease, or unspecified chronic kidney disease (principal); N18.9 Chronic kidney disease, unspecified; Z88.2 Allergy status to sulfonamides; Z79.899 Other long term (current) drug therapy
CPT/HCPCS: 36415; 80053; 93005; 99285-25